=== PATIENT | female | born 1940 | race Caucasian/White ===

== ENCOUNTER → 2017-04-26 | Outpatient (CLI) | payer OTHER ==
[~2017-04-26] MED LIST: ASPI81TA28 PO; GADAVIST IV PRN; LISI-725 PO; NITR-5 PO; SUMA50TA15 PO; VERA1TAB PO
--- NOTE | 2017-04-26 13:53 | DIAGNOSTIC IMAGING REPORT ---
MRI OF THE BRAIN WITHOUT AND WITH IV CONTRAST CLINICAL HISTORY: Ovarian carcinoma. Severe headaches. COMPARISON STUDY: No previous studies for comparison. TECHNIQUE: MRI of the brain was performed from the vertex to the skull base utilizing various T1 and T2 weighted sequences. Following the IV administration of 5 mL of Gadavist contrast, additional enhanced images were obtained. FINDINGS: Sagittal T1, axial diffusion, proton density and T2 weighted axial, coronal FLAIR, and pre and post axial T1-weighted images were acquired. These were supplemented with post gadolinium coronal T1 weighted images. No intra or extra-axial mass lesions are visualized. Axial diffusion-weighted images reveal no evidence of acute or subacute infarction. There is no evidence of ventricular dilatation. Proton density T2-weighted and FLAIR images reveal scattered foci of increased T2 signal within the white matter, likely on a small vessel basis. There are no abnormal flow voids. There is no evidence of pathologic enhancement. IMPRESSION: 1. No acute intracranial findings. 2. No evidence of acute or subacute infarction 3. No evidence of intracranial metastasis Electronically signed by: Jai Darby M.D. 04/26/2017 1:52 PM Dictated Date/Time: 04/26/2017 1:50 PM
== END | disposition home or self-care (01) ==
LOC: C.MRI 12:23
PROVIDERS: ATTEND Physician Assistant
DX: G44.019 Episodic cluster headache, not intractable (principal); C56.9 Malignant neoplasm of unspecified ovary

== ENCOUNTER 2017-09-05 10:35 | Inpatient (IN) | payer OTHER ==
[~2017-09-05] VITALS: Ht 167.6 cm; Wt 45.0 kg
[~2017-09-05 10:35] MED LIST changes: -GADAVIST IV PRN
[2017-09-05] MEDS ORDERED: SODIUM CHLORIDE 0.9% 1000ML 1,000 ML IV STA (10:55)
--- NOTE | 2017-09-05 10:57 | EMERGENCY ROOM VISIT NOTE ---
History Report prepared by Maurisioibpacheco: Vannessa Quintero Under the Supervision of: Dr. Andry Bates M.D. First contact with patient: 10:46 Chief Complaint: ABDOMINAL PAIN Stated Complaint: ACUTE STOMACH ACHE, VOMITING Nursing Triage Summary: pt to the ED with abd pain and n/v since sat and now her vomitt is black History of Present Illness The patient is a 76 year old female who presents to the Emergency Room with complaints of worsening abdominal pain for the past 2 days. She rates her pain as a 9/10 in severity. She has also been nauseous and vomiting for the past 2 days and states her vomit now looks black in color. She has not vomited since last night. She denies any diarrhea or change in her bowels. She has experienced no hematuria or dysuria and has experienced no pain or swelling in her legs. She denies ever experiencing similar symptoms in the past. The patient notes she has a history of ovarian cancer, diagnosed in December 2016, and has undergone chemotherapy and radiation as well as a total hysterectomy. She has also undergone an appendectomy and cholecystectomy. She has lost weight over the past few months due to her cancer history. 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 Please see Additional Medical History Sheet. Past Medical & Surgical Medical Problems: (1) Hypertension (2) Migraine headache (3) Ovarian cancer Surgical Problems: (1) History of appendectomy (2) History of cholecystectomy (3) History of total hysterectomy Family History Cholecystitis Heart disease Hypertension Lung disease Social History Smoking Status: Never Smoker Alcohol Use: none Drug Use: none Marital Status: Housing Status: lives with family Occupation Status: retired Current/Historical Medications Scheduled Aspirin (Aspirin Ec), 81 MG PO DAILY Gabapentin (Neurontin), 600 MG PO HS Verapamil (Calan), 80 MG PO TID Scheduled PRN Docusate Sodium (Colace), 100 MG PO for Constipation Allergies Coded Allergies: Carbamazepine (Verified Allergy, Mild, ITCHING, 09/05/17) Valproic Acid (Verified Allergy, Mild, ITCH, 09/05/17) Physical Exam Vital Signs Date Time Temp Pulse Resp B/P (MAP) Pulse Ox O2 Delivery O2 Flow Rate FiO2 09/05/17 14:36 68 18 156/75 93 Room Air 09/05/17 13:14 73 20 136/75 93 09/05/17 10:38 36.4 68 18 153/86 95 Room Air Physical Exam GENERAL: Patient awake, alert, oriented x 3. Patient follows commands. Patient does not appear toxic. Patient is adequately hydrated. Patient appears somewhat emaciated and to be in moderate distress. SKIN: No erythema, pallor, cyanosis or rash HEENT: Normal head, pupils equal, reactive to light and accommodation. Oral cavity and posterior pharynx appear normal. Neck: Without adenopathy, no neck vein distention. LUNGS: Clear to auscultation. No wheezes, no rales, no rhonchi. HEART: No murmurs. No gallops. No rubs ABDOMEN: Patient has a well healed RUQ scar and midline suprapubic scar. There is generalized tenderness of the abdomen bilaterally, below the umbilicus. No masses, no rebound, no hepatomegaly or splenomegaly. EXTREMITIES: No signs of trauma. No pedal or pretibial edema. No calf or thigh tenderness. NEUROLOGIC: Cranial nerves II-XII within normal limits. No gross motor sensory function deficits. Medical Decision & Procedures ER Provider Diagnostic Interpretation: Radiology results as stated below per my review and radiologist interpretation: ABD/PELVIS IV AND ORAL CONT CLINICAL HISTORY: 76 years-old Female presenting with abdominal pain vomiting recent ovarian CA and surg. TECHNIQUE: Multidetector CT of the abdomen and pelvis was performed after the administration of oral and intravenous contrast. IV contrast: 93 mL of Optiray 320. A dose lowering technique was used consistent with the principles of ALARA (as low as reasonably achievable). COMPARISON: 09/05/2016. CT DOSE (mGy.cm): The estimated cumulative dose is 266.36 mGy.cm. FINDINGS: Chro topogram: Gaseous distention of stomach and small bowel. Lung bases: Minimal basilar opacities, likely atelectasis. Multichamber enlargement of the heart. Coronary artery calcification. No pericardial or pleural effusion. Liver: Normal morphology. Several subcentimeter well-defined hypodensities in the right hepatic lobe unchanged from prior, likely hepatic cysts or hamartomas. No new focal lesion. Patent hepatic vasculature. Biliary: Mild to moderate biliary ductal prominence likely a reservoir effect in the post cholecystectomy state. Gallbladder surgically absent. Pancreas: Prominence of the pancreatic duct with mild diffuse pancreatic parenchymal atrophy. This is unchanged from prior exam. No gross evidence of a obstructing mass at the pancreatic head. Spleen: Parenchymal calcification suggest prior granulomatous infection. Adrenal glands: Normal. Kidneys and ureters: Numerous subcentimeter hypodensities too small to characterize but likely cysts. No hydronephrosis. No nephrolithiasis. Distal ureters poorly assessed. Bladder: Normal. Pelvic organs: Uterus surgically absent. No adnexal masses. Bowel: Moderate stool burden in the rectum. Mild diffuse colonic wall thickening. Appendix not clearly visualized. Terminal ileum is decompressed. Significantly dilated small bowel loops measuring over 5 cm in maximal diameter. The stomach and jejunum are also dilated. An internal hernia is suspected in the right mid abdomen, the source of the bowel obstruction and site of the transition point. At the site of the internal hernia, small bowel wall appears hyperenhancing. A closed loop obstruction is not excluded. Peritoneal cavity: Small amount of free fluid in the abdomen and pelvis. Mild peritoneal enhancement is suggested in the cul-de-sac. No gross nodularity of the peritoneum. Lymph nodes: No enlarged lymph nodes in the abdomen or pelvis. Vasculature: Atherosclerosis of the normal caliber abdominal aorta. IVC patent. Abdominal wall: Postsurgical changes of the midline abdominal wall. Cachexia is suggested. Musculoskeletal: Degenerative changes of the spine. IMPRESSION: 1. Findings highly suspicious for internal hernia in the right mid abdomen resulting in the small bowel obstruction. A closed loop obstruction of the herniated loop of bowel is not excluded. No CT evidence of bowel infarction at this time. Urgent surgical consultation is recommended. 2. Postsurgical changes of hysterectomy and bilateral salpingo-oophorectomy. 3. Chronic prominence of the biliary ducts and pancreatic duct. No gross evidence of a pancreatic head mass. 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 The report will be called/faxed according to standard departmental protocol. Electronically signed by: Percy Pinzon M.D. 09/05/2017 2:26 PM Laboratory Results 09/05/17 11:05 Red Blood Count 4.33, Mean Corpuscular Volume 95.6, Mean Corpuscular Hemoglobin 31.6, Mean Corpuscular Hemoglobin Concent 33.1, Mean Platelet Volume 9.2, Neutrophils (%) (Auto) 82.5, Lymphocytes (%) (Auto) 10.7, Monocytes (%) (Auto) 6.7, Eosinophils (%) (Auto) 0.1, Basophils (%) (Auto) 0.0, Neutrophils # (Auto) 5.62, Lymphocytes # (Auto) 0.73, Monocytes # (Auto) 0.46, Eosinophils # (Auto) 0.01, Basophils # (Auto) 0.00 09/05/17 11:05 Test 09/05/17 11:05 09/05/17 12:40 White Blood Count 6.82 K/uL (4.8-10.8) Red Blood Count 4.33 M/uL (4.2-5.4) Hemoglobin 13.7 g/dL (12.0-16.0) Hematocrit 41.4 % (37-47) Mean Corpuscular Volume 95.6 fL (80-100) Mean Corpuscular Hemoglobin 31.6 pg (25-34) Mean Corpuscular Hemoglobin Concent 33.1 g/dl (32-36) Platelet Count 166 K/uL (130-400) Mean Platelet Volume 9.2 fL (7.4-10.4) Neutrophils (%) (Auto) 82.5 % Lymphocytes (%) (Auto) 10.7 % Monocytes (%) (Auto) 6.7 % Eosinophils (%) (Auto) 0.1 % Basophils (%) (Auto) 0.0 % Neutrophils # (Auto) 5.62 K/uL (1.4-6.5) Lymphocytes # (Auto) 0.73 K/uL (1.2-3.4) Monocytes # (Auto) 0.46 K/uL (0.11-0.59) Eosinophils # (Auto) 0.01 K/uL (0-0.5) Basophils # (Auto) 0.00 K/uL (0-0.2) RDW Standard Deviation 49.0 fL (36.4-46.3) RDW Coefficient of Variation 14.0 % (11.5-14.5) Immature Granulocyte % (Auto) 0.0 % Immature Granulocyte # (Auto) 0.00 K/uL (0.00-0.02) Prothrombin Time 10.5 SECONDS (9.0-12.0) Prothromb Time International Ratio 1.0 (0.9-1.1) Activated Partial Thromboplast Time 24.7 SECONDS (21.0-31.0) Partial Thromboplastin Ratio 1.0 Anion Gap 5.0 mmol/L (3-11) Est Creatinine Clear Calc Drug Dose 37.1 ml/min Estimated GFR () 69.7 Estimated GFR (Non- 60.1 BUN/Creatinine Ratio 41.3 (10-20) Calcium Level 9.1 mg/dl (8.5-10.1) Total Bilirubin 0.5 mg/dl (0.2-1) Aspartate Amino Transf (AST/SGOT) 14 U/L (15-37) Alanine Aminotransferase (ALT/SGPT) 16 U/L (12-78) Alkaline Phosphatase 67 U/L (45-117) Total Protein 7.1 gm/dl (6.4-8.2) Albumin 3.5 gm/dl (3.4-5.0) Globulin 3.6 gm/dl (2.5-4.0) Albumin/Globulin Ratio 1.0 (0.9-2) Lipase 87 U/L (73-393) Urine Color YELLOW Urine Appearance CLEAR (CLEAR) Urine pH 6.5 (4.5-7.5) Urine Specific [place] 1.028 (1.000-1.030) Urine Protein 1+ (NEG) Urine Glucose (UA) NEG (NEG) Urine Ketones TRACE (NEG) Urine Occult Blood NEG (NEG) Urine Nitrite NEG (NEG) Urine Bilirubin NEG (NEG) Urine Urobilinogen NEG (NEG) Urine Leukocyte Esterase NEG (NEG) Urine WBC (Auto) 1-5 /hpf (0-5) Urine RBC (Auto) 0-4 /hpf (0-4) Urine Hyaline Casts (Auto) 1-5 /lpf (0-5) Urine Epithelial Cells (Auto) 20-30 /lpf (0-5) Urine Bacteria (Auto) NEG (NEG) Laboratory results as stated above per my review. Medications Administered Medications (Trade) Dose Ordered Sig/Abel Route Start Time Stop Time Status Last Admin Dose Admin Morphine Sulfate (MoRPHine SULFATE INJ) 6 mg PRN PRN IV 09/05/17 11:00 09/19/17 10:59 09/05/17 11:16 6 MG Ondansetron HCl (Zofran Inj) 4 mg PRN PRN IV 09/05/17 11:00 10/05/17 10:59 09/05/17 11:16 4 MG Sodium Chloride 1,000 ml @ 500 mls/hr Q2H STAT IV 09/05/17 10:55 09/05/17 12:54 DC 09/05/17 11:16 500 MLS/HR ED Course 1047: Past medical records reviewed. The patient was evaluated in room B4. A complete history and physical examination was performed. 1055: NSS 1000 ml @ 500 mls/hr IV. 1100: Zofran 4 mg IV, Morphine Sulfate 6 mg IV. 1439: ED charge nurse informed me the patients CT scan is being read with a finding of small bowel obstruction. 1442: I reevaluated the patient. I updated her on her test results so far. I discussed my recommendation she remain in the hospital for further evaluation and management and she and her daughter verbalized complete understanding and agreement. 1445: I discussed the patients case with Dr. Alanis [facility] General Surgery. The patient will be further evaluated and he also recommends evaluation by the hospital medicine team. 1505: I [facility] the [facility] The patient will be further evaluated. Medical Decision The differential diagnoses considered include ovarian cancer with metastasis, bowel obstruction, diverticulitis and UTI. The patient is here with significant lower abdominal pain. She has a prior history of ovarian cancer with a total abdominal hysterectomy. Pain began sometime this morning. She's had nausea and vomiting. Multiple labs and imaging were obtained. The patient has small bowel obstruction is noted on CT. The patient was given IV fluids. Surgery was consulted in addition to the medical hospitalist. I discussed care with the patient and her daughter. Medication Reconcilliation Current Medication List: was personally reviewed by me Blood Pressure Screening Patient's blood pressure: Elevated blood pressure Blood pressure disposition: Referred to PCP Consults Time Called: 1440 Consulting Physician: Dr. Alanis, [facility] General Surgery Returned Call: 1445 I discussed the patients case with Dr. Alanis [facility] General Surgery. The patient will be further evaluated and he also recommends evaluation by the hospital medicine team. Additional Consults: Time Called: 1458 Consulted Physician[facility] Returned Call: 1505 Additional Comments: I discussed the patients case with Dr. Mi, [facility] Hospitalist. The patient will be further evaluated. Impression Primary Impression: Small bowel obstruction Additional Impression: History of ovarian cancer Scribe Attestation The scribe's documentation has been prepared under my direction and personally reviewed by me in its entirety. I confirm that the note above accurately reflects all work, treatment, procedures, and medical decision making performed by me. Departure Information Dispostion Being Evaluated By Hospitalist Referrals Yefri Segura M.D. (PCP) Patient Instructions [facility] Problem Qualifiers
[2017-09-05] MEDS ORDERED: ONDANSETRON INJ 2 MG/ML 2 ML VIAL IV PRN (11:00)
[2017-09-05] MEDS ORDERED: MoRPHine SULFATE 2 MG/ML CARP IV PRN (11:00)
[2017-09-05] MEDS ORDERED: GABA-113 PO (11:16)
[2017-09-05] MEDS ORDERED: NAPR1TAB9 PO (11:16)
[2017-09-05] MEDS ORDERED: POLY335019 PO (11:16)
[2017-09-05 11:23] LABS: EOS % 0.1 %; EOS ABS # 0.01 K/uL (0-0.5); HEMATOCRIT 41.4 % (37-47); HEMOGLOBIN 13.7 g/dL (12.0-16.0); LYMPH % 10.7 %; LYMPH ABS # 0.73 K/uL (1.2-3.4); MEAN CELL VOLUME 95.6 fL (80-100); MEAN CORPUSCULAR HEMOGLOBIN 31.6 pg (25-34); MEAN CORPUSCULAR HGB CONC 33.1 g/dl (32-36); MEAN PLATELET VOLUME 9.2 fL (7.4-10.4); MONO % 6.7 %; MONO ABS # 0.46 K/uL (0.11-0.59); NEUT % 82.5 %; NEUT ABS # 5.62 K/uL (1.4-6.5); PLATELET COUNT 166 K/uL (130-400); WHITE BLOOD COUNT 6.82 K/uL (4.8-10.8)
[2017-09-05 11:41] LABS: ALBUMIN 3.5 gm/dl (3.4-5.0); CALCIUM 9.1 mg/dl (8.5-10.1); CREATININE 0.93 mg/dl (0.60-1.20); POTASSIUM 3.3 mmol/L (3.5-5.1)
[2017-09-05 11:44] LABS: TOTAL PROTEIN 7.1 gm/dl (6.4-8.2)
[2017-09-05] MEDS ORDERED: OPTIRAY 320 IV PRN (13:30)
--- NOTE | 2017-09-05 14:27 | DIAGNOSTIC IMAGING REPORT ---
ABD/PELVIS IV AND ORAL CONT CLINICAL HISTORY: 76 years-old Female presenting with abdominal pain vomiting recent ovarian CA and surg. TECHNIQUE: Multidetector CT of the abdomen and pelvis was performed after the administration of oral and intravenous contrast. IV contrast: 93 mL of Optiray 320. A dose lowering technique was used consistent with the principles of ALARA (as low as reasonably achievable). COMPARISON: 09/05/2016. CT DOSE (mGy.cm): The estimated cumulative dose is 266.36 mGy.cm. 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 Lung bases: Minimal basilar opacities, likely atelectasis. Multichamber enlargement of the heart. Coronary artery calcification. No pericardial or pleural effusion. Liver: Normal morphology. Several subcentimeter well-defined hypodensities in the right hepatic lobe unchanged from prior, likely hepatic cysts or hamartomas. No new focal lesion. Patent hepatic vasculature. Biliary: Mild to moderate biliary ductal prominence likely a reservoir effect in the post cholecystectomy state. Gallbladder surgically absent. Pancreas: Prominence of the pancreatic duct with mild diffuse pancreatic parenchymal atrophy. This is unchanged from prior exam. No gross evidence of a obstructing mass at the pancreatic head. Spleen: Parenchymal calcification suggest prior granulomatous infection. Adrenal glands: Normal. Kidneys and ureters: Numerous subcentimeter hypodensities too small to characterize but likely cysts. No hydronephrosis. No nephrolithiasis. Distal ureters poorly assessed. Bladder: Normal. Pelvic organs: Uterus surgically absent. No adnexal masses. Bowel: Moderate stool burden in the rectum. Mild diffuse colonic wall thickening. Appendix not clearly visualized. Terminal ileum is decompressed. Significantly dilated small bowel loops measuring over 5 cm in maximal diameter. The stomach and jejunum are also dilated. An internal hernia is suspected in the right mid abdomen, the source of the bowel obstruction and site of the transition point. At the site of the internal hernia, small bowel wall appears hyperenhancing. A closed loop obstruction is not excluded. Peritoneal cavity: Small amount of free fluid in the abdomen and pelvis. Mild peritoneal enhancement is suggested in the cul-de-sac. No gross nodularity of the peritoneum. Lymph nodes: No enlarged lymph nodes in the abdomen or pelvis. Vasculature: Atherosclerosis of the normal caliber abdominal aorta. IVC patent. Abdominal wall: Postsurgical changes of the midline abdominal wall. Cachexia is suggested. Musculoskeletal: Degenerative changes of the spine. IMPRESSION: 1. Findings highly suspicious for internal hernia in the right mid abdomen resulting in the small bowel obstruction. A closed loop obstruction of the herniated loop of bowel is not excluded. No CT evidence of bowel infarction at this time. Urgent surgical consultation is recommended. 2. Postsurgical changes of hysterectomy and bilateral salpingo-oophorectomy. 3. Chronic prominence of the biliary ducts and pancreatic duct. No gross evidence of a pancreatic head mass. 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 The report will be called/faxed according to standard departmental protocol. Electronically signed by: Percy Pinzon M.D. 09/05/2017 2:26 PM Dictated Date/Time: 09/05/2017 2:13 PM
--- NOTE | 2017-09-05 15:39 | Surgery Consultation ---
Consultation Date of Consultation: Sep 05, 2017. Attending Physician: Reason for Consultation: Small bowel obstruction History of Present Illness 76-year-old female with history of total abdominal hysterectomy for metastatic ovarian cancer, presented to the emergency department with abdominal pain and bloating starting Tuesday. She had a normal bowel movement yesterday, but has not been passing gas. She was vomiting overnight, but has not vomited since midnight. She had hysterectomy at [facility] in December of this year. She has not had similar symptoms in the past. She is not no bowel resections in the past. She did have an open cholecystectomy many years ago. Her appendix is absent as it was taken during her hysterectomy. Pain controlled with medications at this time, no vomiting or nausea. Denies any fevers. Past Medical/Surgical History Medical Problems: Ovarian cancer, migraines, hypertension Past surgical history: Total abdominal hysterectomy with appendectomy Open cholecystectomy Bilateral carpal tunnel surgery Family History Cholecystitis Heart disease Hypertension Lung disease Social History Smoking Status: Never Smoker Drug Use: none Marital Status: Housing Status: lives with family Occupation Status: retired Allergies Coded Allergies: Carbamazepine (Verified Allergy, Unknown, ITCHING, 09/05/16) Uncoded Allergies: DIVALPROEX SODIUM (Allergy, Unknown, ITVH, 09/05/16) Home Medications Scheduled Aspirin (Aspirin Ec), 81 MG PO DAILY Gabapentin (Neurontin), 600 MG PO UD Lisinopril (Zestril), 20 MG PO DAILY Sumatriptan Succinate (Imitrex), 50 MG PO PRN Verapamil (Calan), 80 MG PO BID Scheduled PRN Naproxen (Aleve), 220 MG PO UD PRN for Pain Polyethylene Glycol 3350 (Miralax), 17 GM PO DAILY PRN for Constipation Current Inpatient Medications Current Inpatient Medications Medications (Trade) Dose Ordered Sig/Abel Route Start Time Stop Time Status Last Admin Dose Admin Morphine Sulfate (MoRPHine SULFATE INJ) 6 mg PRN PRN IV 09/05/17 11:00 09/19/17 10:59 09/05/17 11:16 6 MG Ondansetron HCl (Zofran Inj) 4 mg PRN PRN IV 09/05/17 11:00 10/05/17 10:59 09/05/17 11:16 4 MG Ioversol (Optiray 320) 100 ml UD PRN IV 09/05/17 13:30 09/09/17 13:29 Review of Systems 10 point review of systems negative except as above Physical Exam Date Time Temp Pulse Resp B/P (MAP) Pulse Ox O2 Delivery O2 Flow Rate FiO2 09/05/17 14:36 68 18 156/75 93 Room Air 09/05/17 13:14 73 20 136/75 93 09/05/17 10:38 36.4 68 18 153/86 95 Room Air General Appearance: WD/WN, + mild distress Head: normocephalic, atraumatic Eyes: normal inspection, PERRL, EOMI ENT: normal ENT inspection, hearing grossly normal Neck: supple, no adenopathy, thyroid normal Respiratory/Chest: chest non-tender, lungs clear, normal breath sounds, no respiratory distress, no accessory muscle use Cardiovascular: regular rate, rhythm, no edema, normal peripheral pulses Abdomen/GI: soft, + tenderness, + distended, + pertinent finding (abdomen with Tammie incision and right upper quadrant, low midline incision well healed. No hernias. Abdomen distended, mildly tender to palpation right lower quadrant with no guarding or rebound. Tympanitic to percussion.) Back: normal inspection, no CVA tenderness, normal range of motion Extremities/Musculoskelatal: normal inspection, no calf tenderness, normal capillary refill, non-tender Neurologic/Psych: special tester II-XII nml as tested, alert, normal mood/affect, oriented x 3 Skin: normal color, warm/dry, no rash Lymphatic: no adenopathy Laboratory Results ABD/PELVIS IV AND ORAL CONT CLINICAL HISTORY: 76 years-old Female presenting with abdominal pain vomiting recent ovarian CA and surg. TECHNIQUE: Multidetector CT of the abdomen and pelvis was performed after the administration of oral and intravenous contrast. IV contrast: 93 mL of Optiray 320. A dose lowering technique was used consistent with the principles of ALARA (as low as reasonably achievable). COMPARISON: 09/05/2016. CT DOSE (mGy.cm): The estimated cumulative dose is 266.36 mGy.cm. FINDINGS: Luggage Maker topogram: Gaseous distention of stomach and small bowel. Lung bases: Minimal basilar opacities, likely atelectasis. Multichamber enlargement of the heart. Coronary artery calcification. No pericardial or pleural effusion. Liver: Normal morphology. Several subcentimeter well-defined hypodensities in the right hepatic lobe unchanged from prior, likely hepatic cysts or hamartomas. No new focal lesion. Patent hepatic vasculature. Biliary: Mild to moderate biliary ductal prominence likely a reservoir effect in the post cholecystectomy state. Gallbladder surgically absent. Pancreas: Prominence of the pancreatic duct with mild diffuse pancreatic parenchymal atrophy. This is unchanged from prior exam. No gross evidence of a obstructing mass at the pancreatic head. Spleen: Parenchymal calcification suggest prior granulomatous infection. Adrenal glands: Normal. Kidneys and ureters: Numerous subcentimeter hypodensities too small to characterize but likely cysts. No hydronephrosis. No nephrolithiasis. Distal ureters poorly assessed. Bladder: Normal. Pelvic organs: Uterus surgically absent. No adnexal masses. Bowel: Moderate stool burden in the rectum. Mild diffuse colonic wall thickening. Appendix not clearly visualized. Terminal ileum is decompressed. Significantly dilated small bowel loops measuring over 5 cm in maximal diameter. The stomach and jejunum are also dilated. An internal hernia is suspected in the right mid abdomen, the source of the bowel obstruction and site of the transition point. At the site of the internal hernia, small bowel wall appears hyperenhancing. A closed loop obstruction is not excluded. Peritoneal cavity: Small amount of free fluid in the abdomen and pelvis. Mild peritoneal enhancement is suggested in the cul-de-sac. No gross nodularity of the peritoneum. Lymph nodes: No enlarged lymph nodes in the abdomen or pelvis. Vasculature: Atherosclerosis of the normal caliber abdominal aorta. IVC patent. Abdominal wall: Postsurgical changes of the midline abdominal wall. Cachexia is suggested. Musculoskeletal: Degenerative changes of the spine. IMPRESSION: 1. Findings highly suspicious for internal hernia in the right mid abdomen resulting in the small bowel obstruction. A closed loop obstruction of the herniated loop of bowel is not excluded. No CT evidence of bowel infarction at this time. Urgent surgical consultation is recommended. 2. Postsurgical changes of hysterectomy and bilateral salpingo-oophorectomy. 3. Chronic prominence of the biliary ducts and pancreatic duct. No gross evidence of a pancreatic head mass. 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 The report will be called/faxed according to standard departmental protocol. Last 24 Hours Test 09/05/17 11:05 09/05/17 12:40 White Blood Count 6.82 K/uL Red Blood Count 4.33 M/uL Hemoglobin 13.7 g/dL Hematocrit 41.4 % Mean Corpuscular Volume 95.6 fL Mean Corpuscular Hemoglobin 31.6 pg Mean Corpuscular Hemoglobin Concent 33.1 g/dl Platelet Count 166 K/uL Mean Platelet Volume 9.2 fL Neutrophils (%) (Auto) 82.5 % Lymphocytes (%) (Auto) 10.7 % Monocytes (%) (Auto) 6.7 % Eosinophils (%) (Auto) 0.1 % Basophils (%) (Auto) 0.0 % Neutrophils # (Auto) 5.62 K/uL Lymphocytes # (Auto) 0.73 K/uL Monocytes # (Auto) 0.46 K/uL Eosinophils # (Auto) 0.01 K/uL Basophils # (Auto) 0.00 K/uL RDW Standard Deviation 49.0 fL RDW Coefficient of Variation 14.0 % Immature Granulocyte % (Auto) 0.0 % Immature Granulocyte # (Auto) 0.00 K/uL Sodium Level 132 mmol/L Potassium Level 3.3 mmol/L Chloride Level 94 mmol/L Carbon Dioxide Level 33 mmol/L Anion Gap 5.0 mmol/L Blood Urea Nitrogen 38 mg/dl Creatinine 0.93 mg/dl Est Creatinine Clear Calc Drug Dose 37.1 ml/min Estimated GFR () 69.7 Estimated GFR (Non- 60.1 BUN/Creatinine Ratio 41.3 Random Glucose 115 mg/dl Calcium Level 9.1 mg/dl Total Bilirubin 0.5 mg/dl Aspartate Amino Transf (AST/SGOT) 14 U/L Alanine Aminotransferase (ALT/SGPT) 16 U/L Alkaline Phosphatase 67 U/L Total Protein 7.1 gm/dl Albumin 3.5 gm/dl Globulin 3.6 gm/dl Albumin/Globulin Ratio 1.0 Lipase 87 U/L Urine Color YELLOW Urine Appearance CLEAR Urine pH 6.5 Urine Specific [place] 1.028 Urine Protein 1+ Urine Glucose (UA) NEG Urine Ketones TRACE Urine Occult Blood NEG Urine Nitrite NEG Urine Bilirubin NEG Urine Urobilinogen NEG Urine Leukocyte Esterase NEG Urine WBC (Auto) 1-5 /hpf Urine RBC (Auto) 0-4 /hpf Urine Hyaline Casts (Auto) 1-5 /lpf Urine Epithelial Cells (Auto) 20-30 /lpf Urine Bacteria (Auto) NEG Assessment & Plan 76-year-old female with history of ovarian cancer and prior abdominal surgery, now with small bowel obstruction. She is currently stable and not vomiting, her pain is minimal, but she is distended. CT scan was reviewed. I doubt that this represents an internal hernia as the patient has never had any bowel resections. At this point I do not think this represents a closed loop obstruction either. Medicine has been consult for admission, and we will proceed with nonoperative management. Recommendations: Admit to medicine for small bowel obstruction No indication for emergent surgery at this time Nothing by mouth, IV fluids If patient vomits or distention worsens, recommend NG tube placement for lower intermittent wall suction Recommend abdominal x-ray in the morning Gen. surgery will continue to follow, call with questions or concerns The diagnosis, treatment options, and plan of care were discussed with the patient and her daughter, all questions were answered, the patient expressed understanding and agreed with the plan of care as stated.
[2017-09-05] MEDS ORDERED: DOCU-94 PO (15:59)
[2017-09-05] MEDS ORDERED: POTASSIUM CHLR 20 MEQ / WTR 20 MEQ in PREMIXED WATER 100 ML IV ONE (16:00)
[2017-09-05 16:12] LABS: PTT PATIENT 24.7 SECONDS (21.0-31.0)
[2017-09-05 16:40] VITALS: Ht 167.6 cm; Wt 45.0 kg
[2017-09-05] MEDS: SODIUM CHLORIDE 0.9% 1000ML 1,000 ML IV SCH (17:47)
--- NOTE | 2017-09-05 18:06 | History and Physical ---
History & Physical Date & Time of Service: Sep 05, 2017 at 15:48 Chief Complaint: Acute Stomach Ache, Vomiting Primary Care Physician: Yefri Segura M.D. History of Present Illness Source: patient, family, clinic records, hospital records 76 year old female with PMH of ovaria cancer s/p shemo and total hysterectomy, HTN, migriane present to the ER with abdominal pain. Pt said that abdominal pain started about 2 days ago associated with nausea and vomiting. Pt grade pain 9/10, constant, non radiating, achy and located in the mid hypogastric area. She said that her last episodes of vomiting was last night. She said that she has not been eating anything. Her last BM was yesterday that was normal. she denies any diarrhea, hematuria, chest pain, palpitation SOB or dysuria. Past Medical/Surgical History Ovarian cancer Total Hysterectomy HTN Migraine Appendectomy Cholecystectomy Family History Cholecystitis Heart disease Hypertension Lung disease Social History Smoking Status: Never Smoker Drug Use: none Marital Status: Occupational Status: retired Multi-Drug Resistant Organisms History of MDRO: No Allergies Coded Allergies: Carbamazepine (Verified Allergy, Mild, ITCHING, 09/05/17) Valproic Acid (Verified Allergy, Mild, ITCH, 09/05/17) Home Medications Scheduled Aspirin (Aspirin Ec), 81 MG PO DAILY Gabapentin (Neurontin), 600 MG PO HS Verapamil (Calan), 80 MG PO TID Scheduled PRN Docusate Sodium (Colace), 100 MG PO for Constipation Review of Systems Constitutional: + weight loss, No fever, No chills Eyes: No eye pain ENT: No hearing loss, No nasal symptoms, No sore throat Respiratory: No cough, No shortness of breath, No dyspnea on exertion Cardiovascular: No chest pain, No palpitations Abdomen: + pain, + nausea, + vomiting Musculoskeletal: No joint pain, No calf pain Genitourinary - Female: No dysuria, No urinary frequency Neurologic: No memory loss, No numbness/tingling Psychiatric: No depression symptoms, No anxiety Endocrine: No fatigue, No excessive thirst Hematologic / Lymphatic: No abnormal bleeding/bruising Integumentary: No rash, No itch Physical Exam Vital Signs Date Time Temp Pulse Resp B/P (MAP) Pulse Ox O2 Delivery O2 Flow Rate FiO2 09/05/17 14:36 68 18 156/75 93 Room Air 09/05/17 13:14 73 20 136/75 93 09/05/17 10:38 36.4 68 18 153/86 95 Room Air General Appearance: WD/WN, no apparent distress Head: normocephalic, atraumatic Eyes: PERRL, EOMI ENT: normal ENT inspection, hearing grossly normal Neck: supple, no JVD Respiratory/Chest: lungs clear, normal breath sounds, no respiratory distress, no accessory muscle use Cardiovascular: regular rate, rhythm, no JVD Abdomen/GI: + tenderness Back: no CVA tenderness Extremities/Musculoskelatal: no calf tenderness, no pedal edema Neurologic/Psych: no motor/sensory deficits, alert, oriented x 3 Skin: warm/dry, no rash Diagnostics Laboratory Results Results Past 24 Hours Test 09/05/17 11:05 09/05/17 12:40 Range/Units White Blood Count 6.82 4.8-10.8 K/uL Red Blood Count 4.33 4.2-5.4 M/uL Hemoglobin 13.7 12.0-16.0 g/dL Hematocrit 41.4 37-47 % Mean Corpuscular Volume 95.6 80-100 fL Mean Corpuscular Hemoglobin 31.6 25-34 pg Mean Corpuscular Hemoglobin Concent 33.1 32-36 g/dl Platelet Count 166 130-400 K/uL Mean Platelet Volume 9.2 7.4-10.4 fL Neutrophils (%) (Auto) 82.5 % Lymphocytes (%) (Auto) 10.7 % Monocytes (%) (Auto) 6.7 % Eosinophils (%) (Auto) 0.1 % Basophils (%) (Auto) 0.0 % Neutrophils # (Auto) 5.62 1.4-6.5 K/uL Lymphocytes # (Auto) 0.73 1.2-3.4 K/uL Monocytes # (Auto) 0.46 0.11-0.59 K/uL Eosinophils # (Auto) 0.01 0-0.5 K/uL Basophils # (Auto) 0.00 0-0.2 K/uL RDW Standard Deviation 49.0 36.4-46.3 fL RDW Coefficient of Variation 14.0 11.5-14.5 % Immature Granulocyte % (Auto) 0.0 % Immature Granulocyte # (Auto) 0.00 0.00-0.02 K/uL Sodium Level 132 136-145 mmol/L Potassium Level 3.3 3.5-5.1 mmol/L Chloride Level 94 98-107 mmol/L Carbon Dioxide Level 33 21-32 mmol/L Anion Gap 5.0 3-11 mmol/L Blood Urea Nitrogen 38 7-18 mg/dl Creatinine 0.93 0.60-1.20 mg/dl Est Creatinine Clear Calc Drug Dose 37.1 ml/min Estimated GFR () 69.7 Estimated GFR (Non- 60.1 BUN/Creatinine Ratio 41.3 10-20 Random Glucose 115 70-99 mg/dl Calcium Level 9.1 8.5-10.1 mg/dl Total Bilirubin 0.5 0.2-1 mg/dl Aspartate Amino Transf (AST/SGOT) 14 15-37 U/L Alanine Aminotransferase (ALT/SGPT) 16 12-78 U/L Alkaline Phosphatase 67 45-117 U/L Total Protein 7.1 6.4-8.2 gm/dl Albumin 3.5 3.4-5.0 gm/dl Globulin 3.6 2.5-4.0 gm/dl Albumin/Globulin Ratio 1.0 0.9-2 Lipase 87 73-393 U/L Urine Color YELLOW Urine Appearance CLEAR CLEAR Urine pH 6.5 4.5-7.5 Urine Specific [place] 1.028 1.000-1.030 Urine Protein 1+ NEG Urine Glucose (UA) NEG NEG Urine Ketones TRACE NEG Urine Occult Blood NEG NEG Urine Nitrite NEG NEG Urine Bilirubin NEG NEG Urine Urobilinogen NEG NEG Urine Leukocyte Esterase NEG NEG Urine WBC (Auto) 1-5 0-5 /hpf Urine RBC (Auto) 0-4 0-4 /hpf Urine Hyaline Casts (Auto) 1-5 0-5 /lpf Urine Epithelial Cells (Auto) 20-30 0-5 /lpf Urine Bacteria (Auto) NEG NEG Diagnostic Radiology ABD/PELVIS IV AND ORAL CONT CLINICAL HISTORY: 76 years-old Female presenting with abdominal pain vomiting recent ovarian CA and surg. TECHNIQUE: Multidetector CT of the abdomen and pelvis was performed after the administration of oral and intravenous contrast. IV contrast: 93 mL of Optiray 320. A dose lowering technique was used consistent with the principles of ALARA (as low as reasonably achievable). COMPARISON: 09/05/2016. CT DOSE (mGy.cm): The estimated cumulative dose is 266.36 mGy.cm. FINDINGS: Communications Engineer topogram: Gaseous distention of stomach and small bowel. Lung bases: Minimal basilar opacities, likely atelectasis. Multichamber enlargement of the heart. Coronary artery calcification. No pericardial or pleural effusion. Liver: Normal morphology. Several subcentimeter well-defined hypodensities in the right hepatic lobe unchanged from prior, likely hepatic cysts or hamartomas. No new focal lesion. Patent hepatic vasculature. Biliary: Mild to moderate biliary ductal prominence likely a reservoir effect in the post cholecystectomy state. Gallbladder surgically absent. Pancreas: Prominence of the pancreatic duct with mild diffuse pancreatic parenchymal atrophy. This is unchanged from prior exam. No gross evidence of a obstructing mass at the pancreatic head. Spleen: Parenchymal calcification suggest prior granulomatous infection. Adrenal glands: Normal. Kidneys and ureters: Numerous subcentimeter hypodensities too small to characterize but likely cysts. No hydronephrosis. No nephrolithiasis. Distal ureters poorly assessed. Bladder: Normal. Pelvic organs: Uterus surgically absent. No adnexal masses. Bowel: Moderate stool burden in the rectum. Mild diffuse colonic wall thickening. Appendix not clearly visualized. Terminal ileum is decompressed. Significantly dilated small bowel loops measuring over 5 cm in maximal diameter. The stomach and jejunum are also dilated. An internal hernia is suspected in the right mid abdomen, the source of the bowel obstruction and site of the transition point. At the site of the internal hernia, small bowel wall appears hyperenhancing. A closed loop obstruction is not excluded. Peritoneal cavity: Small amount of free fluid in the abdomen and pelvis. Mild peritoneal enhancement is suggested in the cul-de-sac. No gross nodularity of the peritoneum. Lymph nodes: No enlarged lymph nodes in the abdomen or pelvis. Vasculature: Atherosclerosis of the normal caliber abdominal aorta. IVC patent. Abdominal wall: Postsurgical changes of the midline abdominal wall. Cachexia is suggested. Musculoskeletal: Degenerative changes of the spine. IMPRESSION: 1. Findings highly suspicious for internal hernia in the right mid abdomen resulting in the small bowel obstruction. A closed loop obstruction of the herniated loop of bowel is not excluded. No CT evidence of bowel infarction at this time. Urgent surgical consultation is recommended. 2. Postsurgical changes of hysterectomy and bilateral salpingo-oophorectomy. 3. Chronic prominence of the biliary ducts and pancreatic duct. No gross evidence of a pancreatic head mass. 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 The report will be called/faxed according to standard departmental protocol. Electronically signed by: Percy Pinzon M.D. 09/05/2017 2:26 PM Dictated Date/Time: 09/05/2017 2:13 PM Impression Assessment and Plan SMALL BOWEL OBSTRUCTION Present with abdominal pain and nausea Hx of Ovarian cancer and total hysterectomy CT Abd/Pelvis showed highly suspicious for internal hernia in the right mid abdomen resulting in the small bowel obstruction. Surgery consulted Will continue conservative management Keep NPO Continue IVF, and zofran Morphine for pain control Hold NGT for now since pt is not actively vomit Check abdomen xray in am Monitor electrolytes Migraine On Verapamil 80mg TID stable HTN Monitor BP Will add hydralazine if BP elevates Constipation On colace 100mg DVT px on Heparin subq CODE STATUS FULL CODE Level of Care Med/Surg Resuscitation Status FULL RESUSCITATION VTE Prophylaxis VTE Risk Assessment Done? Y/N: Yes Risk Level: Moderate Given or contraindicated: Unfractionated heparin SQ
[2017-09-05] MEDS: POTASSIUM CHLR 10MEQ / WTR IV SCH ×2 (18:11→19:19)
[2017-09-05] MEDS: HEPARIN SOD 5000 UNIT/0.5 ML CARP SQ SCH (18:21)
[2017-09-05] MEDS: MoRPHine SULFATE 2 MG/ML CARP IV PRN ×2 (18:25→23:50)
[2017-09-05 23:05] VITALS: BP 151/47; PULSE 72; TEMP 37.2; O2SAT 92
[2017-09-06] MEDS: SODIUM CHLORIDE 0.9% 1000ML 1,000 ML IV SCH ×2 (06:20→16:23)
[2017-09-06] MEDS: HEPARIN SOD 5000 UNIT/0.5 ML CARP SQ SCH ×2 (06:23→18:34)
[2017-09-06] MEDS: MoRPHine SULFATE 2 MG/ML CARP IV PRN ×4 (06:24→23:05)
[2017-09-06] MEDS: ONDANSETRON INJ 2 MG/ML 2 ML VIAL IV PRN ×3 (06:28→23:05)
[2017-09-06 06:29] LABS: HEMATOCRIT 40.9 % (37-47); HEMOGLOBIN 13.3 g/dL (12.0-16.0); MEAN CORPUSCULAR HEMOGLOBIN 31.2 pg (25-34); MEAN CORPUSCULAR HGB CONC 32.5 g/dl (32-36); MEAN PLATELET VOLUME 9.5 fL (7.4-10.4); PLATELET COUNT 162 K/uL (130-400); RED CELL DISTRIBUTION WIDTH SD 49.3 fL (36.4-46.3); WHITE BLOOD COUNT 6.98 K/uL (4.8-10.8)
[2017-09-06] MEDS ORDERED: INFLUENZA VIRUS QUAD VACCINE 0.5 ML SYR IM. ONE (06:45)
[2017-09-06] MEDS ORDERED: INFLUENZA ADMINISTRATION CHARGE ONE (06:45)
[2017-09-06 06:57] LABS: CALCIUM 8.8 mg/dl (8.5-10.1); CREATININE 0.83 mg/dl (0.60-1.20); POTASSIUM 3.7 mmol/L (3.5-5.1)
[2017-09-06 07:04] VITALS: BP 149/79; PULSE 69; TEMP 37; O2SAT 92
--- NOTE | 2017-09-06 08:46 | DIAGNOSTIC IMAGING REPORT ---
CHEST AND ABDOMEN 2 VIEWS HISTORY: Small bowel obstruction. COMPARISON: Chest 09/05/2016. Abdomen and pelvis CT 09/05/2017. FINDINGS: No pneumothorax. Mild emphysema. The heart is borderline enlarged. This remains unchanged. No new focal lung consolidations to suggest pneumonia. No evidence for pulmonary edema. No pneumoperitoneum. No pneumatosis. Residual contrast seen within the bladder. Multiple gas and fluid-filled dilated loops of small bowel seen within the abdomen. These measure up to 4.7 cm in diameter consistent with the small bowel obstruction. This is similar to the prior study. Small hiatus hernia. IMPRESSION: 1. No acute process within the chest. 2. No significant change in the distended loops of small bowel consistent with a small bowel obstruction. Electronically signed by: Shola Plaza M.D. 09/06/2017 8:45 AM Dictated Date/Time: 09/06/2017 8:42 AM
--- NOTE | 2017-09-06 09:38 | Surgery Progress Note ---
Surgery Progress Note Date of Service Sep 06, 2017. Subjective + pain controlled, + nausea (patient reports that she was nauseous when she first woke up this AM- states that it has since resolved. ), No bowel movement, No flatus Objective Vital Signs: Date Time Temp Pulse Resp B/P (MAP) Pulse Ox O2 Delivery O2 Flow Rate FiO2 09/06/17 07:40 Room Air 09/06/17 07:04 37.0 69 16 149/79 (102) 92 Room Air 09/05/17 23:45 Room Air 09/05/17 23:05 37.2 72 18 151/47 (81) 92 Room Air 09/05/17 16:40 Room Air 09/05/17 16:09 68 18 156/75 93 09/05/17 14:36 68 18 156/75 93 Room Air 09/05/17 13:14 73 20 136/75 93 09/05/17 10:38 36.4 68 18 153/86 95 Room Air General Appearance: WD/WN, no apparent distress Abdomen: + distended, + tenderness (tender to right of umbilicus. ) Laboratory Results: Results Past 24 Hours Test 09/05/17 11:05 09/05/17 12:40 09/06/17 05:56 Range/Units White Blood Count 6.82 6.98 4.8-10.8 K/uL Red Blood Count 4.33 4.26 4.2-5.4 M/uL Hemoglobin 13.7 13.3 12.0-16.0 g/dL Hematocrit 41.4 40.9 37-47 % Mean Corpuscular Volume 95.6 96.0 80-100 fL Mean Corpuscular Hemoglobin 31.6 31.2 25-34 pg Mean Corpuscular Hemoglobin Concent 33.1 32.5 32-36 g/dl Platelet Count 166 162 130-400 K/uL Mean Platelet Volume 9.2 9.5 7.4-10.4 fL Neutrophils (%) (Auto) 82.5 % Lymphocytes (%) (Auto) 10.7 % Monocytes (%) (Auto) 6.7 % Eosinophils (%) (Auto) 0.1 % Basophils (%) (Auto) 0.0 % Neutrophils # (Auto) 5.62 1.4-6.5 K/uL Lymphocytes # (Auto) 0.73 1.2-3.4 K/uL Monocytes # (Auto) 0.46 0.11-0.59 K/uL Eosinophils # (Auto) 0.01 0-0.5 K/uL Basophils # (Auto) 0.00 0-0.2 K/uL RDW Standard Deviation 49.0 49.3 36.4-46.3 fL RDW Coefficient of Variation 14.0 14.0 11.5-14.5 % Immature Granulocyte % (Auto) 0.0 % Immature Granulocyte # (Auto) 0.00 0.00-0.02 K/uL Prothrombin Time 10.5 9.0-12.0 SECONDS Prothromb Time International Ratio 1.0 0.9-1.1 Activated Partial Thromboplast Time 24.7 21.0-31.0 SECONDS Partial Thromboplastin Ratio 1.0 Sodium Level 132 131 136-145 mmol/L Potassium Level 3.3 3.7 3.5-5.1 mmol/L Chloride Level 94 97 98-107 mmol/L Carbon Dioxide Level 33 29 21-32 mmol/L Anion Gap 5.0 5.0 3-11 mmol/L Blood Urea Nitrogen 38 35 7-18 mg/dl Creatinine 0.93 0.83 0.60-1.20 mg/dl Est Creatinine Clear Calc Drug Dose 37.1 41.6 ml/min Estimated GFR () 69.7 79.9 Estimated GFR (Non- 60.1 69.0 BUN/Creatinine Ratio 41.3 42.5 10-20 Random Glucose 115 85 70-99 mg/dl Calcium Level 9.1 8.8 8.5-10.1 mg/dl Total Bilirubin 0.5 0.2-1 mg/dl Aspartate Amino Transf (AST/SGOT) 14 15-37 U/L Alanine Aminotransferase (ALT/SGPT) 16 12-78 U/L Alkaline Phosphatase 67 45-117 U/L Total Protein 7.1 6.4-8.2 gm/dl Albumin 3.5 3.4-5.0 gm/dl Globulin 3.6 2.5-4.0 gm/dl Albumin/Globulin Ratio 1.0 0.9-2 Lipase 87 73-393 U/L Urine Color YELLOW Urine Appearance CLEAR CLEAR Urine pH 6.5 4.5-7.5 Urine Specific Inlet 1.028 1.000-1.030 Urine Protein 1+ NEG Urine Glucose (UA) NEG NEG Urine Ketones TRACE NEG Urine Occult Blood NEG NEG Urine Nitrite NEG NEG Urine Bilirubin NEG NEG Urine Urobilinogen NEG NEG Urine Leukocyte Esterase NEG NEG Urine WBC (Auto) 1-5 0-5 /hpf Urine RBC (Auto) 0-4 0-4 /hpf Urine Hyaline Casts (Auto) 1-5 0-5 /lpf Urine Epithelial Cells (Auto) 20-30 0-5 /lpf Urine Bacteria (Auto) NEG NEG Magnesium Level 2.0 1.8-2.4 mg/dl CHEST AND ABDOMEN 2 VIEWS HISTORY: Small bowel obstruction. COMPARISON: Chest 09/05/2016. Abdomen and pelvis CT 09/05/2017. FINDINGS: No pneumothorax. Mild emphysema. The heart is borderline enlarged. This remains unchanged. No new focal lung consolidations to suggest pneumonia. No evidence for pulmonary edema. No pneumoperitoneum. No pneumatosis. Residual contrast seen within the bladder. Multiple gas and fluid-filled dilated loops of small bowel seen within the abdomen. These measure up to 4.7 cm in diameter consistent with the small bowel obstruction. This is similar to the prior study. Small hiatus hernia. IMPRESSION: 1. No acute process within the chest. 2. No significant change in the distended loops of small bowel consistent with a small bowel obstruction. Assessment & Plan 76-year-old female with history of ovarian cancer and prior abdominal surgery, now with small bowel obstruction Patient seen and examined with Dr. Alanis. Reviewed imaging from this AM- CHEST AND ABDOMEN 2 VIEWS 1. No acute process within the chest. 2. No significant change in the distended loops of small bowel consistent with a small bowel obstruction. Patient to remain NPO except for infrequent sips of water. If patient continues to become nauseous, may need to insert NG tube- will hold off for now. General Surgery will continue to follow.
[2017-09-06 15:13] VITALS: BP 149/78; PULSE 70; TEMP 36.9; O2SAT 94
--- NOTE | 2017-09-06 16:53 | Progress Note ---
Internal Med Progress Note Date of Service: Sep 06, 2017. Provider Documentation: SUBJECTIVE: no feeling well continues to have abdominal pain /localized to rt mid abdomen / next to umbilical area able to pass gas , no bowel movement feels nauseous , no vomiting yet does not want NG tube unless absolutely needed mentions of feeling dizzy /lightheaded with attempt to sit up or stand no syncopal episode OBJECTIVE: Vital Signs-as noted below Exam: General-chronically ill appearing , cachectic , in mild distress due abdominal discomfort Eyes-sclera non icteric PERRLA/EOMI ENT-loss of hair , oral mucosa moist Neck-no thyromegaly , trachea midline Lungs-clear to auscultate , no wheeze or rales Heart-regular S1/s, no JVD , no lower ext edema Abdomen-soft, healed surgical scar on rt lower quadrant , + tenderness on rt mid abdomen next to umbilicus, no rebound , bowel sound not audible Extremities-no rash or deformity Neuro-no focal neurological deficit , AAO x3 Lab data as noted below. ASSESSMENT & PLAN: SMALL BOWEL OBSTRUCTION Presented with abdominal pain and nausea Hx of Ovarian cancer s/p extensive surgery -Diagnostic laparoscopy, exploratory Laparotomy, JOMAR/BSO , bilateral pelvic node dissection , resection of left common iliac lymph node , omentectomy , appendectomy by Dr Sheeahn at [facility] [place] , on 12/29/[address] , omentum , appendix were -negative for malignancy Peritoneal washing -suspicious for malignant cell CT abdomen /Pelvis : Findings highly suspicious for internal hernia in the right mid abdomen resulting in the small bowel obstruction. A closed loop obstruction of the herniated loop of bowel is not excluded. No CT evidence of bowel infarction at this time. Surgery consulted-appreciate input form Dr Alanis given hx of metastatic malignancy with possible peritoneal seeding -high risk for repeat Exp Laparotomy /surgical procedure to correct small bowel obstruction increased risk for adhesive band obstruction post op recommend continue conservative approach and allow bowel rest , for possible spontaneous resolution of bowel obstruction cont NPO , IVF rate increased no episode of active vomiting , has persisted nausea able to pass gas reluctant to have NG tube placed due to discomfort pt is counselled if develops nausea /worsening of abdominal pain /distention - NG decompression of Stomach and Small bowel will be beneficial pt verbalize understanding , willing to try NG on the above circumstances Will continue conservative management Xray of Abdomen today : Multiple gas and fluid-filled dilated loops of small bowel seen within the abdomen. These measure up to 4.7 cm in diameter consistent with the small bowel obstruction. This is similar to the prior study. Small hiatus hernia. pt is continued with bowel rest surgery following closely HX OF CLUSTER HEADACHE /MIGRAINE : follows with Neurology Dr Lemos no complain of Headache hold Verapamil 80mg TID-due to SBO stable OVARIAN CA : Follows with Heme Onc Dr Boone in [facility] [employer] /oncology Dr Sheehan in [facility] Dx in 09/05 -bilateral adnexal mass underwent diagnostic laparoscopy, exploratory Laparotomy, JOMAR/BSO , bilateral pelvic node dissection , resection of left common iliac lymph node , omentectomy , appendectomy by Dr Sheehan at [facility] , on 12/29/16 Pathology: (12/29/2016) -Right salpingo-oophorectomy specimen 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 -Peritoneal washings --> suspicious for malignant cells. - CA 125 level--> 68.6 (11/03/2016) increased level 122 ( 02/15/2017 ) -CEA level--> 3.8, CA 19-9 level--> 4.9 (11/03/2016) completed 6 cycles of adjuvant chemotherapy with Paclitaxel and Carboplatin ( between 01/25/17-04/19/2017 ) CODE STATUS FULL CODE DVT PROPHYLAXIS moderate to high risk given hx of endometrial CA Sub q heparin if surgical procedure is required , Sub q heparin can be d/veronica 8-12 hrs prior DISPOSITION expected to be discharged home when medically stable Medicine follow up with Dr Flor Vital Signs: Date Time Temp Pulse Resp B/P (MAP) Pulse Ox O2 Delivery O2 Flow Rate FiO2 09/07/17 15:28 37.1 57 18 135/74 (94) 93 Room Air 09/07/17 07:40 Room Air 09/07/17 07:15 36.4 66 18 155/67 (96) 93 Room Air 09/06/17 23:10 Room Air 09/06/17 22:53 36.9 66 18 153/77 (102) 94 Room Air Lab Results: Results Past 24 Hours Test 09/07/17 05:59 Range/Units Sodium Level 134 136-145 mmol/L Potassium Level 3.6 3.5-5.1 mmol/L Chloride Level 101 98-107 mmol/L Carbon Dioxide Level 25 21-32 mmol/L Anion Gap 8.0 3-11 mmol/L Blood Urea Nitrogen 35 7-18 mg/dl Creatinine 0.64 0.60-1.20 mg/dl Est Creatinine Clear Calc Drug Dose 54.0 ml/min Estimated GFR () 101.2 Estimated GFR (Non- 87.3 BUN/Creatinine Ratio 54.0 10-20 Random Glucose 73 70-99 mg/dl Calcium Level 8.4 8.5-10.1 mg/dl Magnesium Level 2.0 1.8-2.4 mg/dl
[2017-09-06 22:53] VITALS: BP 153/77; PULSE 66; TEMP 36.9; O2SAT 94
[2017-09-07] MEDS: LORAZEPAM INJ 0.5 MG in SYRINGE 0.25 ML IV PRN ×2 (01:22→19:51)
[2017-09-07] MEDS: SODIUM CHLORIDE 0.9% 1000ML 1,000 ML IV SCH ×3 (03:20→22:18)
[2017-09-07] MEDS: HEPARIN SOD 5000 UNIT/0.5 ML CARP SQ SCH (05:38)
[2017-09-07] MEDS: ONDANSETRON INJ 2 MG/ML 2 ML VIAL IV PRN (05:44)
[2017-09-07 06:49] LABS: CALCIUM 8.4 mg/dl (8.5-10.1); CREATININE 0.64 mg/dl (0.60-1.20); POTASSIUM 3.6 mmol/L (3.5-5.1)
[2017-09-07 07:15] VITALS: BP 155/67; PULSE 66; TEMP 36.4; O2SAT 93
[2017-09-07] MEDS: PROMETHAZINE HCL INJ 12.5 MG in SODIUM CHLORIDE 0.9% 50ML 50 ML IV PRN ×2 (08:08→16:16)
--- NOTE | 2017-09-07 08:29 | DIAGNOSTIC IMAGING REPORT ---
[facility] CLINICAL HISTORY: 76 years-old Female presenting with small bowel obstruction . TECHNIQUE: Single supine view of the abdomen was obtained. COMPARISON: 09/06/[address] from 09/05/2017. FINDINGS: Dilated loop of small bowel in the left mid abdomen with an apparent diameter of 5 cm, though this may be exaggerated by magnification. Lucency in the epigastrium may be within a distended stomach. No commencing evidence of pneumoperitoneum within limitations of supine positioning. Atherosclerosis. Levoscoliotic curvature of the lumbar spine. IMPRESSION: 1. Pathologically dilated small bowel remains concerning for small bowel obstruction. Electronically signed by: Percy Pinzon M.D. 09/07/2017 8:27 AM Dictated Date/Time: 09/07/2017 8:24 AM
--- NOTE | 2017-09-07 11:25 | Surgery Progress Note ---
Surgery Progress Note Date of Service Sep 07, 2017. Subjective No bowel movement, No flatus Nausea this AM- feels that it is due to Zofran. States that nausea has since improved. Objective Vital Signs: Date Time Temp Pulse Resp B/P (MAP) Pulse Ox O2 Delivery O2 Flow Rate FiO2 09/07/17 07:40 Room Air 09/07/17 07:15 36.4 66 18 155/67 (96) 93 Room Air 09/06/17 23:10 Room Air 09/06/17 22:53 36.9 66 18 153/77 (102) 94 Room Air 09/06/17 15:25 Room Air 09/06/17 15:13 36.9 70 16 149/78 (101) 94 Room Air General Appearance: WD/WN, no apparent distress Head: normocephalic, atraumatic Abdomen: + pertinent finding (tender to palpation right of umbilicus, distention improving. ) Laboratory Results: Results Past 24 Hours Test 09/07/17 05:59 Range/Units Sodium Level 134 136-145 mmol/L Potassium Level 3.6 3.5-5.1 mmol/L Chloride Level 101 98-107 mmol/L Carbon Dioxide Level 25 21-32 mmol/L Anion Gap 8.0 3-11 mmol/L Blood Urea Nitrogen 35 7-18 mg/dl Creatinine 0.64 0.60-1.20 mg/dl Est Creatinine Clear Calc Drug Dose 54.0 ml/min Estimated GFR () 101.2 Estimated GFR (Non- 87.3 BUN/Creatinine Ratio 54.0 10-20 Random Glucose 73 70-99 mg/dl Calcium Level 8.4 8.5-10.1 mg/dl Magnesium Level 2.0 1.8-2.4 mg/dl Assessment & Plan 09/07/2017- 76-year-old female with history of ovarian cancer and prior abdominal surgery, now with small bowel obstruction Patient seen and examined with Dr. Alanis. Recent imaging reviewed. Passing flatus yesterday, no BM yet. Patient continues to have intermittent nausea, especially in the AM. Patient believes that it may be Zofran causing the nausea- reports that nausea has improved. Phenergan was added. Will continue to hold off on NG tube, but informed patient that if she does continue to become nauseous we will have to place it. Encourage ambulation. General Surgery will continue to follow. 76-year-old female with history of ovarian cancer and prior abdominal surgery, now with small bowel obstruction Patient seen and examined with Dr. Alanis. Reviewed imaging from this AM- CHEST AND ABDOMEN 2 VIEWS 1. No acute process within the chest. 2. No significant change in the distended loops of small bowel consistent with a small bowel obstruction. Patient to remain NPO except for infrequent sips of water. If patient continues to become nauseous, may need to insert NG tube- will hold off for now. General Surgery will continue to follow.
[2017-09-07] MEDS: MoRPHine SULFATE 2 MG/ML CARP IV PRN ×3 (12:13→23:09)
[2017-09-07 15:28] VITALS: BP 135/74; PULSE 57; TEMP 37.1; O2SAT 93
--- NOTE | 2017-09-07 18:09 | Progress Note ---
Internal Med Progress Note Date of Service: Sep 07, 2017. Provider Documentation: SUBJECTIVE: has persisted nausea , symptom worse with IV Zofran-D/veronica PRN Phenergan ordered Xray of abdomen shows persisted dilated small bowel -SBO discussed with pt and daughter -due to extensive nature of prior abdominal surgery and ovarian ca if pt fails conservative approach , for definitive tx -surgery will need to be transferred to [place] pt is agreeable at present does not have any abdominal discomfort pt is counselled to consider for the placement of NG tube , pt remains high risk for surgery all attempt to resolve the bowel obstruction with bowel rest /non surgical approach will have better out come pt is willing to try for NG tube ordered for NG tube insertion with low intermittent suction Xray of abdomen with acute obstruction series ordered in AM OBJECTIVE: Vital Signs-as noted below Exam: General-chronically ill appearing , cachectic , in mild distress due abdominal discomfort Eyes-sclera non icteric PERRLA/EOMI ENT-loss of hair , oral mucosa moist Neck-no thyromegaly , trachea midline Lungs-clear to auscultate , no wheeze or rales Heart-regular S1/s, no JVD , no lower ext edema Abdomen-soft, healed surgical scar on rt lower quadrant , + tenderness on rt mid abdomen next to umbilicus, no rebound , bowel sound not audible Extremities-no rash or deformity Neuro-no focal neurological deficit , AAO x3 Lab data as noted below. ASSESSMENT & PLAN: SMALL BOWEL OBSTRUCTION Presented with abdominal pain and nausea Hx of Ovarian cancer s/p extensive surgery -Diagnostic laparoscopy, exploratory Laparotomy, JOMAR/BSO , bilateral pelvic node dissection , resection of left common iliac lymph node , omentectomy , appendectomy by Dr Sheehan at [facility] , [place] , on 12/29/[address] , omentum , appendix were -negative for malignancy Peritoneal washing -suspicious for malignant cell CT abdomen /Pelvis : Findings highly suspicious for internal hernia in the right mid abdomen resulting in the small bowel obstruction. A closed loop obstruction of the herniated loop of bowel is not excluded. No CT evidence of bowel infarction at this time. Surgery consulted-appreciate input form Dr Alanis given hx of metastatic malignancy with possible peritoneal seeding -high risk for repeat Exp Laparotomy /surgical procedure to correct small bowel obstruction increased risk for adhesive band obstruction post op recommend continue conservative approach and allow bowel rest , for possible spontaneous resolution of bowel obstruction cont NPO , IVF rate increased pt is agreeable for NG tube , ordered for low intermittent suction repeat acute abdomen series ordered in AM d/w Surgery -bowel obstruction remains unchanged for last 72 hrs does not have any evidence of imminent perforation /bowel ischemia or peritoneal sign if pt requires surgical intervention -recommend should be transferred to [place] -where pt had prior surgery on 12/27 , due to extensive bowels surgery /possible peritoneal mets /complicated obstruction HX OF CLUSTER HEADACHE /MIGRAINE : follows with Neurology Dr Lemos no complain of Headache hold Verapamil 80mg TID-due to SBO stable HYPONATREMIA : due to bowel obstruction , fluid loss /dehydration Na level improved with IV NSS cont to follow PRP OVARIAN CA : Follows with Heme Onc Dr Boone in [facility] [employer] /oncology Dr Sheehan in [facility] Dx in 09/05 -bilateral adnexal mass underwent diagnostic laparoscopy, exploratory Laparotomy, JOMAR/BSO , bilateral pelvic node dissection , resection of left common iliac lymph node , omentectomy , appendectomy by Dr Sheehan at [facility] , on 12/29/16 Pathology: (12/29/2016) -Right salpingo-oophorectomy specimen 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 -Peritoneal washings --> suspicious for malignant cells. - CA 125 level--> 68.6 (11/03/2016) increased level 122 ( 02/15/2017 ) -CEA level--> 3.8, CA 19-9 level--> 4.9 (11/03/2016) completed 6 cycles of adjuvant chemotherapy with Paclitaxel and Carboplatin ( between 01/25/17-04/19/2017 ) overall Poor prognosis CODE STATUS FULL CODE DVT PROPHYLAXIS moderate to high risk given hx of endometrial CA given persisted nature of small bowel obstruction -will hold sub q heparin scd and teds ordered if surgical procedure is required , pt [facility] be transferred to [facility] DISPOSITION to be determined May need tertiary level care for surgical intervention for SBO if bowel obstruction not resolved with bowel rest /NG suction Vital Signs: Date Time Temp Pulse Resp B/P (MAP) Pulse Ox O2 Delivery O2 Flow Rate FiO2 09/07/17 15:35 Room Air 09/07/17 15:28 37.1 57 18 135/74 (94) 93 Room Air 09/07/17 07:40 Room Air 09/07/17 07:15 36.4 66 18 155/67 (96) 93 Room Air 09/06/17 23:10 Room Air 09/06/17 22:53 36.9 66 18 153/77 (102) 94 Room Air Lab Results: Results Past 24 Hours Test 09/07/17 05:59 Range/Units Sodium Level 134 136-145 mmol/L Potassium Level 3.6 3.5-5.1 mmol/L Chloride Level 101 98-107 mmol/L Carbon Dioxide Level 25 21-32 mmol/L Anion Gap 8.0 3-11 mmol/L Blood Urea Nitrogen 35 7-18 mg/dl Creatinine 0.64 0.60-1.20 mg/dl Est Creatinine Clear Calc Drug Dose 54.0 ml/min Estimated GFR () 101.2 Estimated GFR (Non- 87.3 BUN/Creatinine Ratio 54.0 10-20 Random Glucose 73 70-99 mg/dl Calcium Level 8.4 8.5-10.1 mg/dl Magnesium Level 2.0 1.8-2.4 mg/dl
[2017-09-07 23:00] VITALS: BP 150/70; PULSE 60; TEMP 37; O2SAT 93
[2017-09-08] MEDS: MoRPHine SULFATE 2 MG/ML CARP IV PRN ×2 (01:59→15:34)
[2017-09-08] MEDS ORDERED: MoRPHine SULFATE 2 MG/ML CARP IV STA (03:00)
[2017-09-08] MEDS ORDERED: NURSING VERBAL MED ORDER ONE (04:00)
[2017-09-08 07:06] LABS: CALCIUM 7.8 mg/dl (8.5-10.1); CREATININE 0.54 mg/dl (0.60-1.20); POTASSIUM 3.4 mmol/L (3.5-5.1)
[2017-09-08 07:43] VITALS: BP 145/72; PULSE 60; TEMP 37.1; O2SAT 92
[2017-09-08] MEDS: SODIUM CHLORIDE 0.9% 1000ML 1,000 ML IV SCH ×2 (07:46→19:26)
--- NOTE | 2017-09-08 09:18 | DIAGNOSTIC IMAGING REPORT ---
ABDOMEN 2 VIEWS HISTORY: SMALL BOWEL OBSTRUCTION COMPARISON: KUB 09/07/2017. FINDINGS: Small bilateral pleural effusions. Nasogastric tube terminates in the stomach. Contrast within the bowel now resides within the colon. Distended gas-filled loops of small bowel persist and measure up to 5 cm in diameter. Therefore, these findings are consistent with a partial small bowel obstruction. The colon remains decompressed. No pneumoperitoneum. No pneumatosis. IMPRESSION: 1. No significant change in distended loops of gas-filled small bowel seen within the left side of the abdomen. However, the oral contrast is now within the colon. Therefore, by definition this is consistent with a partial small bowel obstruction. 2. Nasogastric tube terminates in the stomach. 3. Small bilateral pleural effusions Electronically signed by: Shola Plaza M.D. 09/08/2017 9:17 AM Dictated Date/Time: 09/08/2017 9:13 AM
--- NOTE | 2017-09-08 09:24 | Surgery Progress Note ---
Surgery Progress Note Date of Service Sep 08, 2017. Subjective 76-year-old female admitted with a small bowel obstruction. She finally allowed us to place an NG tube yesterday and has had a good amount of relief from her abdominal bloating and discomfort. She did pass a small amount of gas yesterday. Her records from [facility] were obtained yesterday and showed that she had a total abdominal hysterectomy and bilateral salpingo-oophorectomy along with lymph node dissections and an omentectomy. There is no evidence of metastasis of her ovarian cancer at the time, however the CA-125 remained elevated and she had concern for malignancy on her peritoneal washings at the time of surgery. She completed chemotherapy at the end of April. Overall her abdomen feels less distended and she is not having much pain. Objective Vital Signs: Date Time Temp Pulse Resp B/P (MAP) Pulse Ox O2 Delivery O2 Flow Rate FiO2 09/08/17 07:43 37.1 60 16 145/72 (96) 92 Room Air 09/07/17 23:05 Room Air 09/07/17 23:00 37.0 60 16 150/70 (96) 93 Room Air 09/07/17 15:35 Room Air 09/07/17 15:28 37.1 57 18 135/74 (94) 93 Room Air Physical Exam: nasogastric drainage (750 mL, bilious) General Appearance: WD/WN, no apparent distress Abdomen: non tender, soft, + distended, + pertinent finding (less distention than yesterday, nontender, still tympanitic, some bowel sounds present) Laboratory Results: Abdominal x-ray performed this morning does not have a final read him however it appears to contrast that entered into her colon, but there is still distended small bowel loops. Results Past 24 Hours Test 09/08/17 05:42 Range/Units Sodium Level 137 136-145 mmol/L Potassium Level 3.4 3.5-5.1 mmol/L Chloride Level 105 98-107 mmol/L Carbon Dioxide Level 23 21-32 mmol/L Anion Gap 9.0 3-11 mmol/L Blood Urea Nitrogen 29 7-18 mg/dl Creatinine 0.54 0.60-1.20 mg/dl Est Creatinine Clear Calc Drug Dose 63.9 ml/min Estimated GFR () 107.0 Estimated GFR (Non- 92.3 BUN/Creatinine Ratio 53.6 10-20 Random Glucose 57 70-99 mg/dl Calcium Level 7.8 8.5-10.1 mg/dl Magnesium Level 1.9 1.8-2.4 mg/dl Assessment & Plan 76-year-old female with history of ovarian cancer requiring radical hysterectomy back in December and chemotherapy for presumed metastatic disease, now with partial small bowel obstruction. She did pass some gas yesterday and has contrast in her colon on today's x-ray. There is still distended loops of small bowel. This is the first day she has had an NG tube, I'm hopeful that she can resolve nonoperatively. I did discuss with her that if she needed surgical management, we would have to decide whether she would be better served at a tertiary center based on her history of metastatic ovarian cancer. Recommendations: Continue NG tube to low intermittent wall suction Recommend patient ambulate regularly Continue nonoperative management Surgery will continue to follow Plan of care discussed with the patient, all questions were answered, the patient expressed understanding and agreed with the plan of care as stated
[2017-09-08] MEDS: POTASSIUM CHLR 10 MEQ / WTR 10 MEQ in PREMIXED WATER 100 ML IV SCH ×2 (10:25→11:32)
[2017-09-08 14:56] VITALS: BP 159/69; PULSE 64; TEMP 36.6; O2SAT 92
--- NOTE | 2017-09-08 19:14 | Progress Note ---
Internal Med Progress Note Date of Service: Sep 08, 2017. Provider Documentation: SUBJECTIVE: NG tube continues to drain dark bilious fluid no nausea , abdominal discomfort , boating has improved complains of irritation on nose due to NG tube able to pass gas no bowel movement yet OBJECTIVE: Vital Signs-as noted below Exam: General-chronically ill appearing , cachectic , Eyes-sclera non icteric PERRLA/EOMI ENT-NG tube present Neck-no thyromegaly , trachea midline Lungs-clear to auscultate , no wheeze or rales Heart-regular S1/s, no JVD , no lower ext edema Abdomen-soft, healed surgical scar on rt lower quadrant , + tenderness on rt mid abdomen next to umbilicus, no rebound , bowel sound not audible Extremities-no rash or deformity Neuro-no focal neurological deficit , AAO x3 Lab data as noted below. ASSESSMENT & PLAN: SMALL BOWEL OBSTRUCTION improved ; Xray of abdomen series shows ; contrast passage to lower GI -large intestine , still dilated small bowel -Partial bowel obstruction appreciate input from surgery Cont NG suction , IV Fluids pt is encouraged to increase activity as tolerated Presented with abdominal pain and nausea Hx of Ovarian cancer s/p extensive surgery -Diagnostic laparoscopy, exploratory Laparotomy, JOMAR/BSO , bilateral pelvic node dissection , resection of left common iliac lymph node , omentectomy , appendectomy by Dr Sheehan at [facility] , on 12/29/[address] , omentum , appendix were -negative for malignancy Peritoneal washing -suspicious for malignant cell CT abdomen /Pelvis : Findings highly suspicious for internal hernia in the right mid abdomen resulting in the small bowel obstruction. A closed loop obstruction of the herniated loop of bowel is not excluded. No CT evidence of bowel infarction at this time. HX OF CLUSTER HEADACHE /MIGRAINE : follows with Neurology Dr Lemos no complain of Headache hold Verapamil 80mg TID-due to SBO stable HYPONATREMIA : due to bowel obstruction , fluid loss /dehydration Na level improved with IV NSS cont to follow PRP OVARIAN CA : Follows with Heme Onc Dr Boone in [facility] [employer] /oncology Dr Sheehan in [facility] Dx in 09/05 -bilateral adnexal mass underwent diagnostic laparoscopy, exploratory Laparotomy, JOMAR/BSO , bilateral pelvic node dissection , resection of left common iliac lymph node , omentectomy , appendectomy by Dr Sheehan at [facility] , on 12/29/16 Pathology: (12/29/2016) -Right salpingo-oophorectomy specimen 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 -Peritoneal washings --> suspicious for malignant cells. - CA 125 level--> 68.6 (11/03/2016) increased level 122 ( 02/15/2017 ) -CEA level--> 3.8, CA 19-9 level--> 4.9 (11/03/2016) completed 6 cycles of adjuvant chemotherapy with Paclitaxel and Carboplatin ( between 01/25/17-04/19/2017 ) overall Poor prognosis CODE STATUS FULL CODE DVT PROPHYLAXIS moderate to high risk given hx of endometrial CA given persisted nature of small bowel obstruction -will hold sub q heparin scd and teds ordered if surgical procedure is required , pt should be transferred to [facility] DISPOSITION clinically improving continue bowel rest /NG suction -SBO improved to partial bowel obstruction Vital Signs: Date Time Temp Pulse Resp B/P (MAP) Pulse Ox O2 Delivery O2 Flow Rate FiO2 09/08/17 15:30 Room Air 09/08/17 14:56 36.6 64 18 159/69 (99) 92 Room Air 09/08/17 07:43 37.1 60 16 145/72 (96) 92 Room Air 09/08/17 07:30 Room Air 09/07/17 23:05 Room Air 09/07/17 23:00 37.0 60 16 150/70 (96) 93 Room Air Lab Results: Results Past 24 Hours Test 09/08/17 05:42 Range/Units Sodium Level 137 136-145 mmol/L Potassium Level 3.4 3.5-5.1 mmol/L Chloride Level 105 98-107 mmol/L Carbon Dioxide Level 23 21-32 mmol/L Anion Gap 9.0 3-11 mmol/L Blood Urea Nitrogen 29 7-18 mg/dl Creatinine 0.54 0.60-1.20 mg/dl Est Creatinine Clear Calc Drug Dose 63.9 ml/min Estimated GFR () 107.0 Estimated GFR (Non- 92.3 BUN/Creatinine Ratio 53.6 10-20 Random Glucose 57 70-99 mg/dl Calcium Level 7.8 8.5-10.1 mg/dl Magnesium Level 1.9 1.8-2.4 mg/dl
[2017-09-08] MEDS ORDERED: CHLORASEPTIC 1.4% SOLN 180 ML BTL MT PRN (20:30)
[2017-09-08 22:53] VITALS: BP 173/83; PULSE 61; TEMP 36.8; O2SAT 92
[2017-09-08 23:23] VITALS: BP 170/78; PULSE 59
[2017-09-09] MEDS: LORAZEPAM INJ 0.5 MG in SYRINGE 0.25 ML IV PRN ×2 (02:26→23:29)
[2017-09-09] MEDS: SODIUM CHLORIDE 0.9% 1000ML 1,000 ML IV SCH (05:10)
[2017-09-09 06:20] VITALS: BP 158/80
[2017-09-09 06:47] LABS: CALCIUM 7.9 mg/dl (8.5-10.1); CREATININE 0.45 mg/dl (0.60-1.20)
[2017-09-09 07:14] VITALS: BP 167/77; PULSE 64; TEMP 37; O2SAT 93
[2017-09-09] MEDS: POTASSIUM CHLR 10 MEQ / WTR 10 MEQ in PREMIXED WATER 100 ML IV SCH ×3 (08:28→12:52)
[2017-09-09] MEDS ORDERED: MAGNESIUM SULFATE 1GM / D5W 1 GM in PREMIXED IN D5W 100 ML IV ONE (08:30)
[2017-09-09] MEDS: HEPARIN SOD 5000 UNIT/0.5 ML CARP SQ SCH ×2 (08:44→21:38)
--- NOTE | 2017-09-09 11:03 | DIAGNOSTIC IMAGING REPORT ---
PA CHEST RADIOGRAPH AND UPRIGHT AND SUPINE AP RADIOGRAPHS OF THE ABDOMEN CLINICAL HISTORY: Small bowel obstruction. COMPARISON STUDY: CT of the abdomen and pelvis September 05, 2017 and abdominal series September 08, 2017. FINDINGS: Tip of nasogastric tube is within the body of the stomach. There is no pneumothorax. There are small bilateral pleural effusions. There is no evidence of pulmonary edema. No free air is present. There is oral contrast within the colon and rectum from previous CT. Moderate small bowel dilatation has slightly increased. There is gas within the colon. The appearance is similar to prior exam. IMPRESSION: 1. Slight increase in moderate small bowel dilatation which suggests a worsening small bowel obstruction. 2. No free air. 3. Tip of nasogastric tube within body stomach. 4. Small bilateral pleural effusions. Electronically signed by: Som Terrell M.D. 09/09/2017 11:02 AM Dictated Date/Time: 09/09/2017 10:52 AM
[2017-09-09] MEDS: NSS + 20MEQ KCL 1000ML 1,000 ML IV SCH ×2 (11:05→21:33)
--- NOTE | 2017-09-09 12:09 | Surgery Progress Note ---
Surgery Progress Note Date of Service Sep 09, 2017. Subjective increasing flatus today, no BM, no pain Objective Vital Signs: Date Time Temp Pulse Resp B/P (MAP) Pulse Ox O2 Delivery O2 Flow Rate FiO2 09/09/17 07:15 Room Air 09/09/17 07:14 37.0 64 16 167/77 (107) 93 Room Air 09/09/17 06:20 158/80 (106) 09/09/17 00:00 Room Air 09/08/17 23:23 59 170/78 (108) 09/08/17 22:53 36.8 61 16 173/83 (113) 92 Room Air 09/08/17 15:30 Room Air 09/08/17 14:56 36.6 64 18 159/69 (99) 92 Room Air Physical Exam: nasogastric drainage (350 cc overnight) Abdomen: non tender, soft, + distended (mildly) Laboratory Results: Results Past 24 Hours Test 09/09/17 05:55 Range/Units Sodium Level 135 136-145 mmol/L Potassium Level 3.0 3.5-5.1 mmol/L Chloride Level 99 98-107 mmol/L Carbon Dioxide Level 24 21-32 mmol/L Anion Gap 12.0 3-11 mmol/L Blood Urea Nitrogen 16 7-18 mg/dl Creatinine 0.45 0.60-1.20 mg/dl Est Creatinine Clear Calc Drug Dose 76.7 ml/min Estimated GFR () 113.6 Estimated GFR (Non- 98.0 BUN/Creatinine Ratio 35.8 10-20 Random Glucose 55 70-99 mg/dl Calcium Level 7.9 8.5-10.1 mg/dl Magnesium Level 1.7 1.8-2.4 mg/dl Diagnostic Interpretation: PA CHEST RADIOGRAPH AND UPRIGHT AND SUPINE AP RADIOGRAPHS OF THE ABDOMEN CLINICAL HISTORY: Small bowel obstruction. COMPARISON STUDY: CT of the abdomen and pelvis September 05, 2017 and abdominal series September 08, 2017. FINDINGS: Tip of nasogastric tube is within the body of the stomach. There is no pneumothorax. There are small bilateral pleural effusions. There is no evidence of pulmonary edema. No free air is present. There is oral contrast within the colon and rectum from previous CT. Moderate small bowel dilatation has slightly increased. There is gas within the colon. The appearance is similar to prior exam. IMPRESSION: 1. Slight increase in moderate small bowel dilatation which suggests a worsening small bowel obstruction. 2. No free air. 3. Tip of nasogastric tube within body stomach. 4. Small bilateral pleural effusions. Assessment & Plan PSBO, ovarian CA making slow progress, NG drainage slowly decreasing, now having increasing flatus XR has similar loop of distended small bowel in LUQ but contrast is in colon will try clamping NG this afternoon, if successful can remove and begin clears slowly seen with Dr. Rosas
[2017-09-09 14:11] VITALS: BP 169/75; PULSE 71; O2SAT 94
[2017-09-09 15:13] VITALS: BP 176/83; PULSE 67; TEMP 36.9; O2SAT 93
--- NOTE | 2017-09-09 22:26 | Progress Note ---
Internal Med Progress Note Date of Service: Sep 09, 2017. Provider Documentation: SUBJECTIVE: NG tube d/veronica . feels much better had multiple bowel movements started on clears , tolerating well no nausea or abdominal pain OBJECTIVE: Vital Signs-as noted below Exam: General-chronically ill appearing , cachectic , Eyes-sclera non icteric PERRLA/EOMI ENT-moist oral mucosa Neck-no thyromegaly , trachea midline Lungs-clear to auscultate , no wheeze or rales Heart-regular S1/s, no JVD , no lower ext edema Abdomen-soft, healed surgical scar on rt lower quadrant , non tender bowel sound + ve Extremities-no rash or deformity Neuro-no focal neurological deficit , AAO x3 Lab data as noted below. ASSESSMENT & PLAN: SMALL BOWEL OBSTRUCTION Xray of abdomen series today : 1. Slight increase in moderate small bowel dilatation which suggests a worsening small bowel obstruction. 2. No free air. 3. Tip of nasogastric tube within body stomach. 4. Small bilateral pleural effusions. surgery following discussed with surgery regarding Xray finding per surgery - Xray shows stable dilatation , contrast managed to transit to lower colon recommends clamping the NG tube this after noon pt had not nausea vomiting , able to have bowel movement NG tube D/veronica started on clears -tolerating well will advance diet to full liquid in AM Hx of Ovarian cancer s/p extensive surgery -Diagnostic laparoscopy, exploratory Laparotomy, JOMAR/BSO , bilateral pelvic node dissection , resection of left common iliac lymph node , omentectomy , appendectomy by Dr Sheehan at [facility] , on 12/29/[address] , omentum , appendix were -negative for malignancy Peritoneal washing -suspicious for malignant cell CT abdomen /Pelvis : Findings highly suspicious for internal hernia in the right mid abdomen resulting in the small bowel obstruction. A closed loop obstruction of the herniated loop of bowel is not excluded. No CT evidence of bowel infarction at this time. LOW K/LOW MG : due to NG suction replaced repeat lytes in AM HX OF CLUSTER HEADACHE /MIGRAINE : follows with Neurology Dr Lemos no complain of Headache hold Verapamil 80mg TID-due to SBO stable HYPONATREMIA : due to bowel obstruction , fluid loss /dehydration cont IV NSS cont to follow PRP OVARIAN CA : Follows with Heme Onc Dr Boone in [facility] [employer] /oncology Dr Sheehan in [facility] Dx in 09/05 -bilateral adnexal mass underwent diagnostic laparoscopy, exploratory Laparotomy, JOMAR/BSO , bilateral pelvic node dissection , resection of left common iliac lymph node , omentectomy , appendectomy by Dr Sheehan at [facility] [place] , on 12/29/16 Pathology: (12/29/2016) -Right salpingo-oophorectomy specimen 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 -Peritoneal washings --> suspicious for malignant cells. - CA 125 level--> 68.6 (11/03/2016) increased level 122 ( 02/15/2017 ) -CEA level--> 3.8, CA 19-9 level--> 4.9 (11/03/2016) completed 6 cycles of adjuvant chemotherapy with Paclitaxel and Carboplatin ( between 01/25/17-04/19/2017 ) overall Poor prognosis CODE STATUS FULL CODE DVT PROPHYLAXIS moderate to high risk given hx of endometrial CA sub q heparin DISPOSITION clinically improving diet advanced to full liquid slow advance as tolerated possible discharge home in 1 -2 days Medicine follow up with Dr Segura Vital Signs: Date Time Temp Pulse Resp B/P (MAP) Pulse Ox O2 Delivery O2 Flow Rate FiO2 09/09/17 16:00 Room Air 09/09/17 15:13 36.9 67 16 176/83 (114) 93 Room Air 09/09/17 14:11 71 94 09/09/17 07:15 Room Air 09/09/17 07:14 37.0 64 16 167/77 (107) 93 Room Air 09/09/17 06:20 158/80 (106) 09/09/17 00:00 Room Air 09/08/17 23:23 59 170/78 (108) 09/08/17 22:53 36.8 61 16 173/83 (113) 92 Room Air Lab Results: Results Past 24 Hours Test 09/09/17 05:55 Range/Units Sodium Level 135 136-145 mmol/L Potassium Level 3.0 3.5-5.1 mmol/L Chloride Level 99 98-107 mmol/L Carbon Dioxide Level 24 21-32 mmol/L Anion Gap 12.0 3-11 mmol/L Blood Urea Nitrogen 16 7-18 mg/dl Creatinine 0.45 0.60-1.20 mg/dl Est Creatinine Clear Calc Drug Dose 76.7 ml/min Estimated GFR () 113.6 Estimated GFR (Non- 98.0 BUN/Creatinine Ratio 35.8 10-20 Random Glucose 55 70-99 mg/dl Calcium Level 7.9 8.5-10.1 mg/dl Magnesium Level 1.7 1.8-2.4 mg/dl
[2017-09-09 23:14] VITALS: BP 155/72; PULSE 67; TEMP 37.3; O2SAT 93
[2017-09-10 06:48] VITALS: BP 164/78; PULSE 57; TEMP 36.8; O2SAT 94
[2017-09-10] MEDS: NSS + 20MEQ KCL 1000ML 1,000 ML IV SCH ×2 (07:51→19:25)
[2017-09-10 08:09] LABS: CALCIUM 7.5 mg/dl (8.5-10.1); CREATININE 0.36 mg/dl (0.60-1.20); POTASSIUM 3.5 mmol/L (3.5-5.1)
[2017-09-10] MEDS: HEPARIN SOD 5000 UNIT/0.5 ML CARP SQ SCH ×2 (08:58→20:51)
--- NOTE | 2017-09-10 11:07 | Surgery Progress Note ---
Surgery Progress Note Date of Service Sep 10, 2017. Subjective NGT removed yesterday. Tolerated clears and just had diet advanced to full liquids. Had 1/2 cup of cream of wheat so far. Bowels are working but still very "runny". No further abdominal pain or nausea/ vomiting. Objective Vital Signs: Date Time Temp Pulse Resp B/P (MAP) Pulse Ox O2 Delivery O2 Flow Rate FiO2 09/10/17 09:48 Room Air 09/10/17 06:48 36.8 57 17 164/78 (106) 94 Room Air 09/09/17 23:33 Room Air 09/09/17 23:14 37.3 67 16 155/72 (99) 93 Room Air 09/09/17 16:00 Room Air 09/09/17 15:13 36.9 67 16 176/83 (114) 93 Room Air 09/09/17 14:11 71 94 Respiratory/Chest: no respiratory distress, no accessory muscle use Cardiovascular: regular rate, rhythm Abdomen: normal bowel sounds, non tender, soft, + distended (mild) Laboratory Results: Results Past 24 Hours Test 09/10/17 07:21 Range/Units Sodium Level 135 136-145 mmol/L Potassium Level 3.5 3.5-5.1 mmol/L Chloride Level 99 98-107 mmol/L Carbon Dioxide Level 27 21-32 mmol/L Anion Gap 8.0 3-11 mmol/L Blood Urea Nitrogen 8 7-18 mg/dl Creatinine 0.36 0.60-1.20 mg/dl Est Creatinine Clear Calc Drug Dose 95.9 ml/min Estimated GFR () 122.3 Estimated GFR (Non- 105.5 BUN/Creatinine Ratio 20.9 10-20 Random Glucose 82 70-99 mg/dl Calcium Level 7.5 8.5-10.1 mg/dl Magnesium Level 1.6 1.8-2.4 mg/dl Assessment & Plan Small bowel obstruction in setting of ovarian cancer - resolving. Will advance diet as tolerated. Likely stable for discharge if she tolerates diet.
[2017-09-10 15:08] VITALS: BP 159/78; PULSE 69; TEMP 36.9; O2SAT 94
[2017-09-10 16:00] VITALS: O2SAT 94
--- NOTE | 2017-09-10 18:35 | Progress Note ---
Internal Med Progress Note Date of Service: Sep 10, 2017. Provider Documentation: SUBJECTIVE: sitting on the chair comfortably afebrile tolerating full liquid diet moved bowels no nausea or abdominal pain wants to go home OBJECTIVE: Vital Signs-as noted below Exam: General-alert and oriented. Not in distress ENT-Normal hearing Neck-no neck masses supple Lungs-cta b/l no wheezing no crackles Heart-S1 and S2 heard regular rate and rthym, no murmurs Abdomen-Soft bowel sounds present non tender no distension Extremities-no edema no erythema Neuro-alert and awake moves extremities Lab data as noted below. ASSESSMENT & PLAN: SMALL BOWEL OBSTRUCTION was on NG tube fluids moving bowels NG tube taken off tolerating full liquid diet if tolerates soft diet plan for d/c today Hx of Ovarian cancer s/p extensive surgery -Diagnostic laparoscopy, exploratory Laparotomy, JOMAR/BSO , bilateral pelvic node dissection , resection of left common iliac lymph node , omentectomy , appendectomy by Dr Sheehan at [facility] [place] , on 12/29/[address] , omentum , appendix were -negative for malignancy Peritoneal washing -suspicious for malignant cell f/u needed LOW K/LOW MG : replaced HX OF CLUSTER HEADACHE /MIGRAINE : follows with Neurology Dr Lemos no complain of Headache hold Verapamil 80mg TID-due to SBO stable HYPONATREMIA : due to bowel obstruction , fluid loss /dehydration Na 135 today CODE STATUS FULL CODE DVT PROPHYLAXIS moderate to high risk given hx of endometrial CA sub q heparin DISPOSITION possible d/c today Vital Signs: Date Time Temp Pulse Resp B/P (MAP) Pulse Ox O2 Delivery O2 Flow Rate FiO2 09/10/17 16:00 94 Room Air 09/10/17 15:08 36.9 69 18 159/78 (105) 94 Room Air 09/10/17 09:48 Room Air 09/10/17 06:48 36.8 57 17 164/78 (106) 94 Room Air 09/09/17 23:33 Room Air 09/09/17 23:14 37.3 67 16 155/72 (99) 93 Room Air Lab Results: Results Past 24 Hours Test 09/10/17 07:21 Range/Units Sodium Level 135 136-145 mmol/L Potassium Level 3.5 3.5-5.1 mmol/L Chloride Level 99 98-107 mmol/L Carbon Dioxide Level 27 21-32 mmol/L Anion Gap 8.0 3-11 mmol/L Blood Urea Nitrogen 8 7-18 mg/dl Creatinine 0.36 0.60-1.20 mg/dl Est Creatinine Clear Calc Drug Dose 95.9 ml/min Estimated GFR () 122.3 Estimated GFR (Non- 105.5 BUN/Creatinine Ratio 20.9 10-20 Random Glucose 82 70-99 mg/dl Calcium Level 7.5 8.5-10.1 mg/dl Magnesium Level 1.6 1.8-2.4 mg/dl
[2017-09-10] MEDS ORDERED: NURSING VERBAL MED ORDER ONE (20:15)
[2017-09-10 23:21] VITALS: BP 162/84; PULSE 64; TEMP 37.2; O2SAT 93
--- NOTE | 2017-09-11 07:26 | Surgery Progress Note ---
Surgery Progress Note Date of Service Sep 11, 2017. Subjective Post OP Day: HD 7 + feeling well, + bowel movement, + flatus, + diet (fulls), No complaints, No nausea, No vomiting Objective Vital Signs: Date Time Temp Pulse Resp B/P (MAP) Pulse Ox O2 Delivery O2 Flow Rate FiO2 09/10/17 23:35 Room Air 09/10/17 23:21 37.2 64 16 162/84 (110) 93 Room Air 09/10/17 16:00 94 Room Air 09/10/17 15:08 36.9 69 18 159/78 (105) 94 Room Air 09/10/17 09:48 Room Air General Appearance: WD/WN, no apparent distress Head: normocephalic, atraumatic Neck: supple, trachea midline Respiratory/Chest: chest non-tender, lungs clear, normal breath sounds Cardiovascular: regular rate, rhythm, no gallop, no murmur Abdomen: normal bowel sounds, non tender, non distended, soft Extremities: non-tender, no pedal edema Assessment & Plan SBO, resolved -having BMs -regular diet -discharge per medical team -no surgical issues will sign off
[2017-09-11 07:34] VITALS: BP 155/83; PULSE 67; TEMP 36.6; O2SAT 95
[2017-09-11 08:04] VITALS: BP 155/83; PULSE 67; TEMP 36.6; O2SAT 95
[2017-09-11] MEDS: HEPARIN SOD 5000 UNIT/0.5 ML CARP SQ SCH (09:00)
--- NOTE | 2017-09-11 10:13 | Discharge Instructions ---
Discharge Instructions Date of Service Sep 11, 2017. Admission Reason for Admission: Small Bowel Obstruction Discharge Discharge Diagnosis / Problem: SBO Discharge Goals Goal(s): Decrease discomfort, Improve function Activity Recommendations Activity Limitations: resume your previous activity . Instructions / Follow-Up Instructions / Follow-Up FOLLOWUP WITH FAMILY DOCTOR ON Sep AT 12:45PM Current Hospital Diet Patient's current hospital diet: Low Fiber Diet Discharge Diet Recommended Diet: AHA Diet (Heart Healthy) Pending Studies Studies pending at discharge: no Medical Emergencies . Who to Call and When: Medical Emergencies: If at any time you feel your situation is an emergency, please call 911 immediately. . Non-Emergent Contact Non-Emergency issues call your: Primary Care Provider . . "Provider Documentation" section prepared by Aristides Parra. . VTE Core Measure Inpt VTE Proph given/why not?: Unfractionated heparin SQ
[2017-09-11] MEDS ORDERED: VERAPAMIL HCL 40 MG TAB PO STA (10:14)
--- NOTE | 2017-09-11 16:20 | Progress Note ---
Internal Med Progress Note Date of Service: Sep 11, 2017. Provider Documentation: SUBJECTIVE: resting comfortably afebrile tolerating soft diet moved bowels yesterday no nausea or abdominal pain wants to go home OBJECTIVE: Vital Signs-as noted below Exam: General-alert and oriented. Not in distress ENT-Normal hearing Neck-no neck masses supple Lungs-cta b/l no wheezing no crackles Heart-S1 and S2 heard regular rate and rthym, no murmurs Abdomen-Soft bowel sounds present non tender no distension Extremities-no edema no erythema Neuro-alert and awake moves extremities Lab data as noted below. ASSESSMENT & PLAN: SMALL BOWEL OBSTRUCTION was on NG tube fluids moving bowels NG tube taken off tolerating soft diet d/c home Hx of Ovarian cancer s/p extensive surgery -Diagnostic laparoscopy, exploratory Laparotomy, JOMAR/BSO , bilateral pelvic node dissection , resection of left common iliac lymph node , omentectomy , appendectomy by Dr Sheehan at [facility] [place] , on 12/29/[address] , omentum , appendix were -negative for malignancy Peritoneal washing -suspicious for malignant cell f/u needed LOW K/LOW MG : replaced HX OF CLUSTER HEADACHE /MIGRAINE : follows with Neurology Dr Lemos no complain of Headache hold Verapamil 80mg TID-due to SBO restart home meds on discharge HYPONATREMIA : due to bowel obstruction , fluid loss /dehydration Na 135 CODE STATUS FULL CODE DVT PROPHYLAXIS moderate to high risk given hx of endometrial CA sub q heparin discharged home Vital Signs: Date Time Temp Pulse Resp B/P (MAP) Pulse Ox O2 Delivery O2 Flow Rate FiO2 09/11/17 08:04 36.6 67 19 95 Room Air 09/11/17 07:34 36.6 67 19 155/83 (107) 95 Room Air 09/11/17 07:27 Room Air 09/10/17 23:35 Room Air 09/10/17 23:21 37.2 64 16 162/84 (110) 93 Room Air
--- NOTE | 2017-09-11 17:23 | Discharge Summary ---
Discharge Summary Date of Service Sep 11, 2017. Discharge Summary Admission Date: Sep 05, 2017 at 15:45 Discharge Date: Sep 11, 2017 Discharge Disposition: Home Principal Diagnosis: SBO Secondary Diagnoses/Problems: Ovarian cancer Total Hysterectomy HTN Migraine Appendectomy Cholecystectomy Procedures: CT ABD/PELVIS: 1. Findings highly suspicious for internal hernia in the right mid abdomen resulting in the small bowel obstruction. A closed loop obstruction of the herniated loop of bowel is not excluded. No CT evidence of bowel infarction at this time. Urgent surgical consultation is recommended. 2. Postsurgical changes of hysterectomy and bilateral salpingo-oophorectomy. 3. Chronic prominence of the biliary ducts and pancreatic duct. No gross evidence of a pancreatic head mass. 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 Consultations: SURGERY Medication Reconciliation Continued Medications: Aspirin (Aspirin Ec) 81 Mg Tab 81 MG PO DAILY Docusate Sodium (Colace) 100 Mg Cap 100 MG PO PRN for Constipation, CAP Gabapentin (Neurontin) 300 Mg Cap 600 MG PO HS, CAP with evening meal Verapamil (Calan) 80 Mg Tab 80 MG PO TID, TAB Admission Information HPI (per Admitting provider): 76 year old female with PMH of ovaria cancer s/p shemo and total hysterectomy, HTN, migriane present to the ER with abdominal pain. Pt said that abdominal pain started about 2 days ago associated with nausea and vomiting. Pt grade pain 9/10, constant, non radiating, achy and located in the mid hypogastric area. She said that her last episodes of vomiting was last night. She said that she has not been eating anything. Her last BM was yesterday that was normal. she denies any diarrhea, hematuria, chest pain, palpitation SOB or dysuria. Physical Exam (per Admitting): General Appearance: WD/WN, no apparent distress Head: normocephalic, atraumatic Eyes: PERRL, EOMI ENT: normal ENT inspection, hearing grossly normal Neck: supple, no JVD Respiratory/Chest: lungs clear, normal breath sounds, no respiratory distress, no accessory muscle use Cardiovascular: regular rate, rhythm, no JVD Abdomen/GI: + tenderness Back: no CVA tenderness Extremities/Musculoskelatal: no calf tenderness, no pedal edema Neurologic/Psych: no motor/sensory deficits, alert, oriented x 3 Skin: warm/dry, no rash Hospital Course SMALL BOWEL OBSTRUCTION was on NG tube fluids moving bowels NG tube taken off tolerating soft diet d/c home Hx of Ovarian cancer s/p extensive surgery -Diagnostic laparoscopy, exploratory Laparotomy, JOMAR/BSO , bilateral pelvic node dissection , resection of left common iliac lymph node , omentectomy , appendectomy by Dr Sheehan at [facility] , [place] , on 12/29/[address] , omentum , appendix were -negative for malignancy Peritoneal washing -suspicious for malignant cell f/u needed LOW K/LOW MG : replaced HX OF CLUSTER HEADACHE /MIGRAINE : follows with Neurology Dr Lemos no complain of Headache hold Verapamil 80mg TID-due to SBO restart home meds on discharge HYPONATREMIA : due to bowel obstruction , fluid loss /dehydration Na 135 CODE STATUS FULL CODE DVT PROPHYLAXIS moderate to high risk given hx of endometrial CA sub q heparin discharged home Total time spent on discharge = 35MINUTES This includes examination of the patient, discharge planning, medication reconciliation, and communication with other providers. Discharge Instructions Discharge Instructions Date of Service Sep 11, 2017. Admission Reason for Admission: Small Bowel Obstruction Discharge Discharge Diagnosis / Problem: SBO Discharge Goals Goal(s): Decrease discomfort, Improve function Activity Recommendations Activity Limitations: resume your previous activity . Instructions / Follow-Up Instructions / Follow-Up FOLLOWUP WITH FAMILY DOCTOR ON Sep AT 12:45PM Current Hospital Diet Patient's current hospital diet: Low Fiber Diet Discharge Diet Recommended Diet: AHA Diet (Heart Healthy) Pending Studies Studies pending at discharge: no Medical Emergencies . Who to Call and When: Medical Emergencies: If at any time you feel your situation is an emergency, please call 911 immediately. . Non-Emergent Contact Non-Emergency issues call your: Primary Care Provider . . "Provider Documentation" section prepared by Aristides Parra. . VTE Core Measure Inpt VTE Proph given/why not?: Unfractionated heparin SQ
== END 2017-09-11 11:11 | disposition home or self-care (01) | DRG 389 ==
LOC: C.EDB 10:37 → C.MSW 15:45 → ENRESERV 16:00
PROVIDERS: ADMIT Internal Medicine; ATTEND Internal Medicine
DX: K56.609 Unspecified intestinal obstruction, unspecified as to partial versus complete obstruction (principal); E87.1 Hypo-osmolality and hyponatremia; C78.6 Secondary malignant neoplasm of retroperitoneum and peritoneum; I10 Essential (primary) hypertension; Z85.43 Personal history of malignant neoplasm of ovary; Z79.82 Long term (current) use of aspirin; Z90.710 Acquired absence of both cervix and uterus; Z90.722 Acquired absence of ovaries, bilateral

== ENCOUNTER 2017-10-03 17:44 | Inpatient (IN) | payer OTHER ==
[~2017-10-03] VITALS: Ht 167.6 cm; Wt 44.6 kg
[~2017-10-03 17:44] MED LIST changes: +DOCU-94 PO; +GABA-113 PO; -LISI-725 PO; -NITR-5 PO; -SUMA50TA15 PO
[2017-10-03] MEDS ORDERED: ONDANSETRON INJ 2 MG/ML 2 ML VIAL IV STA (19:37)
[2017-10-03] MEDS ORDERED: SODIUM CHLORIDE 0.9% 250ML 250 ML IV STA (19:37)
[2017-10-03] MEDS ORDERED: MoRPHine SULFATE 2 MG/ML CARP IV STA (19:37)
[2017-10-03] MEDS ORDERED: SODIUM CHLORIDE 0.9% 1000ML 1,000 ML IV STA (19:37)
--- NOTE | 2017-10-03 19:42 | EMERGENCY ROOM VISIT NOTE ---
History Report prepared by Don: Brissa Veras Under the Supervision of: Dr. Stephenie Gramajo M.D. First contact with patient: 19:27 Chief Complaint: GI ASSESSMENT Stated Complaint: BOWEL BLOCKAGE History of Present Illness The patient is a 76 year old female who presents to the Emergency Room with complaints of stomach pain beginning around 1300 today. She started throwing up while driving and had to pulley maintainer. The patient got home and felt "very warm" and and then "very cold." She denies hematochezia and hematemesis. The patient had a bowel obstruction last month for which she was admitted and conservatively treated. Patient had surgery for her ovarian cancer at [facility]. The patient has a history of ovarian cancer and high blood pressure. Source of History: patient Onset: 1300 today Position: other Quality: other (vomiting ) Associated Symptoms: + fevers, + chills, + vomiting, No hematochezia Note: negative hematemesis Review of Systems See HPI for pertinent positives & negatives. A total of 10 systems reviewed and were otherwise negative. Past Medical & Surgical Medical Problems: (1) Hypertension (2) Migraine headache (3) Ovarian cancer (4) SBO (small bowel obstruction) Surgical Problems: (1) History of appendectomy (2) History of cholecystectomy (3) History of total hysterectomy Family History Cholecystitis Heart disease Hypertension Lung disease Social History Smoking Status: Former Smoker Alcohol Use: none Drug Use: none Marital Status: Housing Status: lives with family Occupation Status: retired Current/Historical Medications Scheduled Gabapentin (Neurontin), 600 MG PO HS Verapamil (Calan), 80 MG PO TID Scheduled PRN Docusate Sodium (Colace), 100 MG PO for Constipation Allergies Coded Allergies: Carbamazepine (Verified Allergy, Mild, ITCHING, 10/03/17) Valproic Acid (Verified Allergy, Mild, ITCH, 10/03/17) Physical Exam Vital Signs Date Time Temp Pulse Resp B/P (MAP) Pulse Ox O2 Delivery O2 Flow Rate FiO2 10/03/17 21:11 79 20 161/74 96 Room Air 10/03/17 17:57 37.1 75 20 131/93 93 Room Air Physical Exam Vital signs reviewed. General: Weak, cachectic female, in no significant distress. HEENT: No scleral icterus, PERRLA, neck supple. Atraumatic. Cardiovascular: Regular rate and rhythm, no extra sounds. Pulmonary: Clear to auscultation bilaterally, normal work of breathing. Abdomen: Soft, nontender, distended with positive tympany, positive bowel sounds. Musculoskeletal: Atraumatic, no peripheral edema. Neurologic: Patient awake alert and oriented x 3 Skin: Warm, dry, no rash Medical Decision & Procedures ER Provider Diagnostic Interpretation: Radiology results as stated below per my review and radiologist interpretation: CHEST ONE VIEW PORTABLE CLINICAL HISTORY: SBO, distended abd, FA dyspnea COMPARISON STUDY: 09/09/2017 FINDINGS: Mild emphysematous and chronic granulomatous change. No focal infiltrate. Diaphragms smooth but somewhat flattened. IMPRESSION: Chronic and emphysematous change. No acute process. The above report was generated using voice recognition software. It may contain grammatical, syntax or spelling errors. Electronically signed by: Mc Burks M.D. 10/03/2017 8:19 PM Dictated Date/Time: 10/03/2017 8:19 PM ABD/PELVIS IV CONTRAST ONLY CT DOSE: 229.27 mGy.cm HISTORY: Bowel obstruction SBO, h/o ovarian cancer TECHNIQUE: Multiaxial CT images of the abdomen and pelvis were performed following the use of intravenous contrast. A dose lowering technique was utilized adhering to the principles of ALARA. COMPARISON STUDY: 09/05/2017 FINDINGS: Lung bases are clear. Trace amount of perihepatic ascites similar compared to the prior study. No significant space-occupying lesions within the liver. Kidneys enhance uniformly. Atherosclerotic change abdominal aorta unchanged from the prior exam. Unchanging prominence of the biliary ductal system. Distended loops of small bowel extending from the left central abdominal region through the soft tissue pelvic region. Moderate amount of ascites within the pelvic cul-de-sac. Etiology is not clear. A well-defined obstructing mass or lesion is not appreciated. The bowel pattern distention is at some variance to the prior study which related to the right upper quadrant. Current evaluation indicates of the low central pelvis although again a true obstructing lesion is not appreciated. No definitive evidence for pneumatosis. No significant colonic distention of the cochlea current study. IMPRESSION: 1. Findings consistent with a nonspecific small bowel obstructive process most likely in the central or upper pelvic region. 2. The degree of small bowel distention is similar as compared to the prior study with a moderate amount of low pelvic ascites and a mild amount of perihepatic ascites. 3. Etiology of the small bowel obstruction given is unknown but appears to be different from the right upper quadrant etiology on the prior study . A well-defined obstructing mass is not appreciated on this study. The above report was generated using voice recognition software. It may contain grammatical, syntax or spelling errors. Electronically signed by: Mc Burks M.D. 10/03/2017 9:20 PM Dictated Date/Time: 10/03/2017 9:14 PM Laboratory Results Test 10/03/17 20:20 Total Bilirubin 0.3 mg/dl (0.2-1) Direct Bilirubin < 0.1 mg/dl (0-0.2) Aspartate Amino Transf (AST/SGOT) 16 U/L (15-37) Alanine Aminotransferase (ALT/SGPT) 16 U/L (12-78) Alkaline Phosphatase 80 U/L (45-117) Total Protein 7.2 gm/dl (6.4-8.2) Albumin 3.4 gm/dl (3.4-5.0) Lipase 108 U/L (73-393) Laboratory results per my review. Medications Administered Medications (Trade) Dose Ordered Sig/Abel Route Start Time Stop Time Status Last Admin Dose Admin Sodium Chloride 250 ml @ 999 mls/hr Q16M STAT IV 10/03/17 19:37 10/03/17 19:52 DC 10/03/17 19:37 999 MLS/HR Sodium Chloride 1,000 ml @ 125 mls/hr Q8H STAT IV 10/03/17 19:37 10/03/17 23:55 DC 10/03/17 19:37 125 MLS/HR Morphine Sulfate (MoRPHine SULFATE INJ) 2 mg NOW STAT IV 10/03/17 19:37 10/03/17 19:41 DC 10/03/17 20:51 2 MG Promethazine HCl 12.5 mg/Sodium Chloride 50.5 ml @ 204 mls/hr NOW STAT IV 10/03/17 20:28 10/03/17 20:42 DC 10/03/17 20:51 204 MLS/HR ECG Indication: vomiting Rate (beats per minute): 64 Rhythm: normal sinus Findings: left axis deviation, other (previous septal infarct, left atrial margins) ED Course 1934: Past medical records reviewed. The patient was evaluated in room A11. A complete history and physical examination was performed. 1936: Ordered Morphine Sulfate 2 mg IV, Zofran Inj 4 mg IV, sodium chloride 250 ml @ 999 mls/hr IV 1999: Ordered Ioversol 111 ml IV 2027: Ordered Promethazine HCl 50.5 ml @ 204 mls/hr IV 2129: I reevaluated the patient at this time. She appeared content and was resting comfortably. 2199: Upon reevaluation, the patient is resting comfortably. I discussed laboratory and radiographic results with her. She verbalized agreement of the treatment plan. The patient will be evaluated and referred to surgery for further management and care. Medical Decision Differential diagnosis includes small bowel obstruction, visceral perforation, gastric distention, constipation, gastroenteritis This patient was evaluated and appeared to be in no significant distress. Physical examination reveals abdominal distention. Chest x-ray was performed and reveals chronic changes, no acute abnormality. CT scan of the abdomen and pelvis with IV contrast reveals evidence of a small bowel obstruction with a separate transition point that last month. Patient was given IV morphine and Phenergan for her symptoms. NG tube was placed. General surgery was consulted. The patient will be evaluated by the internal medicine service for further management. The patient is aware of the plan and agrees. Medication Reconcilliation Current Medication List: was personally reviewed by me Blood Pressure Screening Patient's blood pressure: Normal blood pressure Consults Time Called: 2109 Consulting Physician: Dr. Moncada Returned Call: 2115 The patient will be further evaluated and referred to surgery Impression Primary Impression: SBO (small bowel obstruction) Scribe Attestation The scribe's documentation has been prepared under my direction and personally reviewed by me in its entirety. I confirm that the note above accurately reflects all work, treatment, procedures, and medical decision making performed by me. Departure Information Dispostion Admitted as an inpatient Referrals Yefri Segura M.D. (PCP) Patient Instructions My [facility]
[2017-10-03] MEDS ORDERED: OPTIRAY 320 IV PRN (20:00)
--- NOTE | 2017-10-03 20:20 | DIAGNOSTIC IMAGING REPORT ---
CHEST ONE VIEW PORTABLE CLINICAL HISTORY: SBO, distended abd, FA dyspnea COMPARISON STUDY: 09/09/2017 FINDINGS: Mild emphysematous and chronic granulomatous change. No focal infiltrate. Diaphragms smooth but somewhat flattened. IMPRESSION: Chronic and emphysematous change. No acute process. The above report was generated using voice recognition software. It may contain grammatical, syntax or spelling errors. Electronically signed by: Mc Burks M.D. 10/03/2017 8:19 PM Dictated Date/Time: 10/03/2017 8:19 PM
[2017-10-03] MEDS ORDERED: PROMETHAZINE HCL INJ 12.5 MG in SODIUM CHLORIDE 0.9% 50ML 50 ML IV STA (20:28)
[2017-10-03 20:35] LABS: BASO % 0.1 %; BASO ABS # 0.01 K/uL (0-0.2); EOS % 0.4 %; EOS ABS # 0.03 K/uL (0-0.5); HEMATOCRIT 41.5 % (37-47); HEMOGLOBIN 13.4 g/dL (12.0-16.0); IG# 0.01 K/uL (0.00-0.02); LYMPH % 12.1 %; LYMPH ABS # 0.82 K/uL (1.2-3.4); MEAN CELL VOLUME 95.8 fL (80-100); MEAN CORPUSCULAR HEMOGLOBIN 30.9 pg (25-34); MEAN CORPUSCULAR HGB CONC 32.3 g/dl (32-36); MEAN PLATELET VOLUME 8.6 fL (7.4-10.4); MONO % 2.4 %; MONO ABS # 0.16 K/uL (0.11-0.59); NEUT % 84.9 %; NEUT ABS # 5.76 K/uL (1.4-6.5); PLATELET COUNT 199 K/uL (130-400); RED CELL DISTRIBUTION WIDTH CV 14.5 % (11.5-14.5); RED CELL DISTRIBUTION WIDTH SD 51.3 fL (36.4-46.3); WHITE BLOOD COUNT 6.79 K/uL (4.8-10.8)
[2017-10-03 20:50] LABS: ALBUMIN 3.4 gm/dl (3.4-5.0); ALT/SGPT 16 U/L (12-78); BLOOD UREA NITROGEN 21 mg/dl (7-18); CALCIUM 9.4 mg/dl (8.5-10.1); CARBON DIOXIDE 30 mmol/L (21-32); CREATININE 0.71 mg/dl (0.60-1.20); GLUCOSE 111 mg/dl (70-99); LIPASE 108 U/L (73-393); POTASSIUM 4.1 mmol/L (3.5-5.1); SODIUM 138 mmol/L (136-145)
[2017-10-03 20:53] LABS: ALKALINE PHOSPHATASE 80 U/L (45-117); AST/SGOT 16 U/L (15-37); TOTAL PROTEIN 7.2 gm/dl (6.4-8.2)
--- NOTE | 2017-10-03 21:21 | DIAGNOSTIC IMAGING REPORT ---
ABD/PELVIS IV CONTRAST ONLY CT DOSE: 229.27 mGy.cm HISTORY: Bowel obstruction SBO, h/o ovarian cancer TECHNIQUE: Multiaxial CT images of the abdomen and pelvis were performed following the use of intravenous contrast. A dose lowering technique was utilized adhering to the principles of ALARA. COMPARISON STUDY: 09/05/2017 FINDINGS: Lung bases are clear. Trace amount of perihepatic ascites similar compared to the prior study. No significant space-occupying lesions within the liver. Kidneys enhance uniformly. Atherosclerotic change abdominal aorta unchanged from the prior exam. Unchanging prominence of the biliary ductal system. Distended loops of small bowel extending from the left central abdominal region through the soft tissue pelvic region. Moderate amount of ascites within the pelvic cul-de-sac. Etiology is not clear. A well-defined obstructing mass or lesion is not appreciated. The bowel pattern distention is at some variance to the prior study which related to the right upper quadrant. Current evaluation indicates of the low central pelvis although again a true obstructing lesion is not appreciated. No definitive evidence for pneumatosis. No significant colonic distention of the cochlea current study. IMPRESSION: 1. Findings consistent with a nonspecific small bowel obstructive process most likely in the central or upper pelvic region. 2. The degree of small bowel distention is similar as compared to the prior study with a moderate amount of low pelvic ascites and a mild amount of perihepatic ascites. 3. Etiology of the small bowel obstruction given is unknown but appears to be different from the right upper quadrant etiology on the prior study . A well-defined obstructing mass is not appreciated on this study. The above report was generated using voice recognition software. It may contain grammatical, syntax or spelling errors. Electronically signed by: Mc Burks M.D. 10/03/2017 9:20 PM Dictated Date/Time: 10/03/2017 9:14 PM
--- NOTE | 2017-10-03 22:32 | Surgery Consultation ---
Consultation Date of Consultation: Oct 03, 2017. Attending Physician: Reason for Consultation: Small Bowel Obstruction (Dilip Lee PA-C) History of Present Illness Patient is a 76F who presents to the ED with abdominal bloating/pain, nausea, and vomiting which started earlier today around 1300. States she at [employer] soup for lunch before her symptoms started. She has not eaten anything since then. She was seen the ED 09/05/17 for a small bowel obstruction by Dr. Alanis and was admitted at that time. Her obstruction was resolved with conservative management and she was discharged home on 09/11/17. Denies any symptoms after her discharge until today. States she started noticing abdominal bloating/pain and then she became nauseated and had 1 episode of vomiting. Denies any blood in her vomit. Reports her last BM was this AM. She has been urinating without trouble. PSHx significant cholecystectomy and JOMAR-SBO December 2016 due to Ovarian cancer. She states they also took her appendix out during her JOMAR-SBO procedure. Reports they caught her ovarian cancer early and she did not require any chemotherapy or radiation. She is scheduled to see her oncologist in October [address] scan. Denies any other abdominal surgeries in the past. States she did feel a bit cold earlier today but denies fever/chills. She does currently take Aspirin 81mg QD and denies use of other blood thinning or anticoagulant medications. At this time her abdominal pain is controlled and she does not report any nausea or vomiting. States her abdomen does feel a bit full at this time. She did receive a dose of Zofran in the ED which made her dizzy so she then received a dose of promethazine as well which has controlled her nausea. WBC WNL. CT abd/pelvis w/ IV contrast reveals findings consistent with a nonspecific small bowel obstructive process most likely in the central or upper pelvic region. The degree of small bowel distention is similar as compared to the prior study with a moderate amount of low pelvic ascites and a mild amount of perihepatic ascites. Etiology of the small bowel obstruction given is unknown but appears to be different from the right upper quadrant etiology on the prior study . No well-defined obstructing masses identified. (Dilip Lee, SYLVIAC) Past Medical/Surgical History Medical Problems: (1) History of ovarian cancer Status: Acute (2) Ileus Status: Acute (3) Nausea Status: Acute (4) Small bowel obstruction Status: Acute (5) Weakness Status: Acute (Dilip Lee PA-C) Family History Cholecystitis Heart disease Hypertension Lung disease (Dilip Lee PA-C) Cholecystitis Heart disease Hypertension Lung disease (Alok Hill M.D.) Social History Smoking Status: Former Smoker Drug Use: none Marital Status: Housing Status: lives with family Occupation Status: retired (Dilip Lee PA-C) Allergies Coded Allergies: Carbamazepine (Verified Allergy, Mild, ITCHING, 10/03/17) Valproic Acid (Verified Allergy, Mild, ITCH, 10/03/17) Home Medications Scheduled Aspirin (Aspirin Ec), 81 MG PO DAILY Gabapentin (Neurontin), 600 MG PO HS Verapamil (Calan), 80 MG PO TID Scheduled PRN Docusate Sodium (Colace), 100 MG PO for Constipation Current Inpatient Medications Current Inpatient Medications Medications (Trade) Dose Ordered Sig/Abel Route Start Time Stop Time Status Last Admin Dose Admin Sodium Chloride 1,000 ml @ 125 mls/hr Q8H STAT IV 10/03/17 19:37 10/04/17 03:36 10/03/17 19:37 125 MLS/HR Ioversol (Optiray 320) 111 ml UD PRN IV 10/03/17 20:00 10/07/17 19:59 (Dilip Lee PA-C) Review of Systems Constitutional: No fever, No chills Cardiovascular: No chest pain Abdomen: + pain (Generalized), + nausea (earlier today), + vomiting (earlier today, no blood), + constipation (No BM since this AM), No diarrhea Genitourinary - Female: No dysuria, No hematuria (Dilip Lee PA-C) Physical Exam Date Time Temp Pulse Resp B/P (MAP) Pulse Ox O2 Delivery O2 Flow Rate FiO2 10/03/17 21:11 79 20 161/74 96 Room Air 10/03/17 17:57 37.1 75 20 131/93 93 Room Air Patient resting in bed. General Appearance: WD/WN, no apparent distress Head: normocephalic, atraumatic ENT: hearing grossly normal Neck: trachea midline Respiratory/Chest: no respiratory distress, no accessory muscle use Abdomen/GI: soft, no organomegaly, no pulsatile mass, + tenderness (Generalized , most prominent in Epigastric area. ), + abnormal bowel sounds (mildly hyperactive) Neurologic/Psych: alert, normal mood/affect, oriented x 3 Skin: normal color, warm/dry (NeenahDilip Del Real, PAQuanC) Laboratory Results Last 24 Hours Test 10/03/17 20:20 White Blood Count 6.79 K/uL Red Blood Count 4.33 M/uL Hemoglobin 13.4 g/dL Hematocrit 41.5 % Mean Corpuscular Volume 95.8 fL Mean Corpuscular Hemoglobin 30.9 pg Mean Corpuscular Hemoglobin Concent 32.3 g/dl Platelet Count 199 K/uL Mean Platelet Volume 8.6 fL Neutrophils (%) (Auto) 84.9 % Lymphocytes (%) (Auto) 12.1 % Monocytes (%) (Auto) 2.4 % Eosinophils (%) (Auto) 0.4 % Basophils (%) (Auto) 0.1 % Neutrophils # (Auto) 5.76 K/uL Lymphocytes # (Auto) 0.82 K/uL Monocytes # (Auto) 0.16 K/uL Eosinophils # (Auto) 0.03 K/uL Basophils # (Auto) 0.01 K/uL RDW Standard Deviation 51.3 fL RDW Coefficient of Variation 14.5 % Immature Granulocyte % (Auto) 0.1 % Immature Granulocyte # (Auto) 0.01 K/uL Sodium Level 138 mmol/L Potassium Level 4.1 mmol/L Chloride Level 102 mmol/L Carbon Dioxide Level 30 mmol/L Anion Gap 6.0 mmol/L Blood Urea Nitrogen 21 mg/dl Creatinine 0.71 mg/dl Est Creatinine Clear Calc Drug Dose 48.6 ml/min Estimated GFR () 96.6 Estimated GFR (Non- 83.3 BUN/Creatinine Ratio 29.3 Random Glucose 111 mg/dl Calcium Level 9.4 mg/dl Magnesium Level 2.0 mg/dl Total Bilirubin 0.3 mg/dl Direct Bilirubin < 0.1 mg/dl Aspartate Amino Transf (AST/SGOT) 16 U/L Alanine Aminotransferase (ALT/SGPT) 16 U/L Alkaline Phosphatase 80 U/L Total Protein 7.2 gm/dl Albumin 3.4 gm/dl Lipase 108 U/L (Dilip Lee, PA-C) Assessment & Plan Abdominal pain, nausea, vomiting, CT Findings consistent with a nonspecific small bowel obstructive process most likely in the central or upper pelvic region. Pain Controlled, No N/V at this time. No Leukocytosis. Will opt for conservative management at this time. May need to discuss possible exploratory surgery options in the future as this is her second SBO episode within the past month. NPO, IV Fluids, IV pain medication PRN, IV Phenergan PRN for nausea (as zofran made her dizzy), SCDs. I think we can hold off on an NGT at this point given that her N/V is controlled. May need to place one if she develops any further nausea or vomiting. Admit per hospitalist team. Will discuss findings with Dr. Hill in AM. Please contact with questions or concerns. (Dilip Lee, CARON-C) 10/03/17- adm w/ recurrent sxs of abd bloating, N/V less than 24 hrs- CT evidence of sbo- h/o JOMAR/BSO 12/2016- ([facility] [place]) for ovarian cancer. Apparently had chemo, no radiation. similar episode req NG 08/2017- resolved w/o surgery For now- nonoperative mgt- discussed possible need for surgery if worsens- last visit they considered transfer to [facility] if surgery needed- - I did examine pt- min tenderness, mildly distended- hold KENROY Hill (Alok Hill M.D.)
[2017-10-03] MEDS ORDERED: MoRPHine SULFATE 4 MG/ML 1 ML CARP\\VIAL IV PRN (22:45)
[2017-10-03] MEDS ORDERED: PROMETHAZINE HCL INJ 12.5 MG in SODIUM CHLORIDE 0.9% 50ML 50 ML IV PRN (22:45)
[2017-10-03] MEDS ORDERED: ACETAMINOPHEN IV 100 ML IV PRN (22:45)
[2017-10-03] MEDS ORDERED: VERAPAMIL HCL 40 MG TAB PO ONE (23:01)
[2017-10-03] MEDS ORDERED: KETOROLAC TROMETHAMINE 15 MG/ML VIAL IV. PRN (23:15)
[2017-10-03] MEDS ORDERED: HYDROmorphone INJ 0.5 MG/0.5 ML SYR IV PRN (23:15)
[2017-10-03] MEDS ORDERED: TRAMADOL HCL 50 MG TAB PO PRN (23:15)
[2017-10-03] MEDS ORDERED: PROCHLORPERAZINE INJ 5 MG in SYRINGE 4 ML IV PRN (23:15)
[2017-10-03] MEDS ORDERED: ACETAMINOPHEN 325 MG TAB PO PRN (23:15)
[2017-10-03 23:50] VITALS: BP 187/81; PULSE 59; TEMP 37; Ht 167.6 cm; Wt 44.6 kg
[2017-10-03] MEDS: MoRPHine SULFATE 2 MG/ML CARP IV PRN (23:56)
[2017-10-04 00:30] VITALS: BP 177/81; PULSE 84; O2SAT 98
--- NOTE | 2017-10-04 01:07 | HISTORY & PHYSICAL EXAMINATION ---
DATE OF ADMISSION: 10/03/2017 PRIMARY CARE DOCTOR: Yefri Segura MD CHIEF COMPLAINT: Abdominal pain. HISTORY OF PRESENT ILLNESS: History obtained from patient, family, records. Medical history significant for ovarian cancer status post surgery/chemotherapy (2017), hypertension, past tobacco abuse. Recent confinement last month for bowel obstruction, Resolved with conservative management. Today, she had achy abdominal pain, with nausea and vomiting while driving. She had to black puller. No chest pain or shortness of breath. Good bowel movement. Patient brought to the Emergency Room. MEDICAL HISTORY: As above. Normal CA125 level last June,. SURGERIES: She has had hysterectomy, appendectomy, carpal tunnel surgery, gynecologic procedures, ulnar nerve surgery. HOME MEDICATIONS: Include gabapentin, verapamil, naproxen, aspirin. ALLERGIES: VALPROIC ACID AND TEGRETOL. FAMILY HISTORY: Family history of colon cancer, lung cancer, stroke, diabetes and breast cancer. PERSONAL AND SOCIAL HISTORY: Past tobacco use, no chronic intake of alcohol. 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 REVIEW OF SYSTEMS: As per HPI. All 10 systems reviewed. All other ROS negative. PHYSICAL EXAMINATION: VITAL SIGNS: Blood pressure was noted to be 131/90, pulse 90, RR 20, temperature 37, sats 98 on room air. GENERAL: Noted to be hyposthenic, comfortable, no respiratory distress. SKIN: Normal color, warm. HEENT: [place] palpebral conjunctiva. No ptosis. Dry mucosa. NECK: Supple. No tenderness. CHEST: Clear to auscultation. No tenderness. HEART: Regular rate and rhythm. No murmur. ABDOMEN: Soft, nontender. EXTREMITIES: No edema, no tenderness. No gross deformities. NEUROLOGIC: Coherent. No gross focality. LABORTORIES: Hemoglobin 13, hematocrit 41, white blood cell count 6.7, platelets 199. Sodium 137, potassium 4.1, chloride 102, CO2 30, BUN 21, creatinine 0.7, glucose 111, LFTs, lipase normal. CT abdomen and pelvis showed nonspecific small bowel obstructive process similar to previous, mild amount of perihepatic ascites. ASSESSMENT: 1. Recurrent bowel obstruction. hx ovarian cancer surgery. 2. Hypertension, stable. 3. Past tobacco abuse. 4. Malnutrition, low BMI. PLAN: GMF analgesia, antiemetics, bowel rest, IV fluids. NGT insertion to facilitate decompression if with recurrence of vomiting Surgery consult. RE RECURRENT SBO (ER provider already in touch with the surgeon alteration worker, Dr. Hill.) Nutrition consult RE low BMI. DVT prophylaxis, Lovenox subQ. Full code. MTDD
[2017-10-04 03:55] VITALS: BP 153/89; PULSE 82; TEMP 37.2; O2SAT 94
[2017-10-04] MEDS ORDERED: SODIUM CHLORIDE 0.9% 1000ML 1,000 ML IV SCH (04:30)
[2017-10-04 06:07] LABS: BASO % 0.2 %; BASO ABS # 0.01 K/uL (0-0.2); EOS % 0.8 %; EOS ABS # 0.05 K/uL (0-0.5); HEMATOCRIT 41.1 % (37-47); HEMOGLOBIN 13.5 g/dL (12.0-16.0); IG# 0.02 K/uL (0.00-0.02); LYMPH % 13.9 %; LYMPH ABS # 0.89 K/uL (1.2-3.4); MEAN CELL VOLUME 95.6 fL (80-100); MEAN CORPUSCULAR HEMOGLOBIN 31.4 pg (25-34); MEAN CORPUSCULAR HGB CONC 32.8 g/dl (32-36); MEAN PLATELET VOLUME 8.9 fL (7.4-10.4); MONO ABS # 0.45 K/uL (0.11-0.59); NEUT % 77.8 %; PLATELET COUNT 190 K/uL (130-400); RED CELL DISTRIBUTION WIDTH CV 14.8 % (11.5-14.5); RED CELL DISTRIBUTION WIDTH SD 51.6 fL (36.4-46.3); WHITE BLOOD COUNT 6.42 K/uL (4.8-10.8)
--- NOTE | 2017-10-04 06:40 | Surgery Progress Note ---
Surgery Progress Note Date of Service Oct 04, 2017. Subjective resting at present- pain last pm- Morphine given Objective Vital Signs: Date Time Temp Pulse Resp B/P (MAP) Pulse Ox O2 Delivery O2 Flow Rate FiO2 10/04/17 03:55 37.2 82 18 153/89 (110) 94 Room Air 10/04/17 00:30 84 18 177/81 (113) 98 Room Air 10/03/17 23:50 Room Air 10/03/17 23:50 37.0 59 18 187/81 Room Air 10/03/17 23:16 71 20 135/81 95 10/03/17 21:11 79 20 161/74 96 Room Air 10/03/17 17:57 37.1 75 20 131/93 93 Room Air General Appearance: no apparent distress Abdomen: + distended Laboratory Results: Results Past 24 Hours Test 10/03/17 20:20 10/04/17 04:30 10/04/17 05:43 Range/Units White Blood Count 6.79 6.42 4.8-10.8 K/uL Red Blood Count 4.33 4.30 4.2-5.4 M/uL Hemoglobin 13.4 13.5 12.0-16.0 g/dL Hematocrit 41.5 41.1 37-47 % Mean Corpuscular Volume 95.8 95.6 80-100 fL Mean Corpuscular Hemoglobin 30.9 31.4 25-34 pg Mean Corpuscular Hemoglobin Concent 32.3 32.8 32-36 g/dl Platelet Count 199 190 130-400 K/uL Mean Platelet Volume 8.6 8.9 7.4-10.4 fL Neutrophils (%) (Auto) 84.9 77.8 % Lymphocytes (%) (Auto) 12.1 13.9 % Monocytes (%) (Auto) 2.4 7.0 % Eosinophils (%) (Auto) 0.4 0.8 % Basophils (%) (Auto) 0.1 0.2 % Neutrophils # (Auto) 5.76 5.00 1.4-6.5 K/uL Lymphocytes # (Auto) 0.82 0.89 1.2-3.4 K/uL Monocytes # (Auto) 0.16 0.45 0.11-0.59 K/uL Eosinophils # (Auto) 0.03 0.05 0-0.5 K/uL Basophils # (Auto) 0.01 0.01 0-0.2 K/uL RDW Standard Deviation 51.3 51.6 36.4-46.3 fL RDW Coefficient of Variation 14.5 14.8 11.5-14.5 % Immature Granulocyte % (Auto) 0.1 0.3 % Immature Granulocyte # (Auto) 0.01 0.02 0.00-0.02 K/uL Sodium Level 138 136-145 mmol/L Potassium Level 4.1 3.5-5.1 mmol/L Chloride Level 102 98-107 mmol/L Carbon Dioxide Level 30 21-32 mmol/L Anion Gap 6.0 3-11 mmol/L Blood Urea Nitrogen 21 7-18 mg/dl Creatinine 0.71 0.60-1.20 mg/dl Est Creatinine Clear Calc Drug Dose 48.6 ml/min Estimated GFR () 96.6 Estimated GFR (Non- 83.3 BUN/Creatinine Ratio 29.3 10-20 Random Glucose 111 70-99 mg/dl Calcium Level 9.4 8.5-10.1 mg/dl Magnesium Level 2.0 1.8-2.4 mg/dl Total Bilirubin 0.3 0.2-1 mg/dl Direct Bilirubin < 0.1 0-0.2 mg/dl Aspartate Amino Transf (AST/SGOT) 16 15-37 U/L Alanine Aminotransferase (ALT/SGPT) 16 12-78 U/L Alkaline Phosphatase 80 45-117 U/L Total Protein 7.2 6.4-8.2 gm/dl Albumin 3.4 3.4-5.0 gm/dl Lipase 108 73-393 U/L Prothrombin Time 10.1 9.0-12.0 SECONDS Prothromb Time International Ratio 1.0 0.9-1.1 Assessment & Plan 10/04/17- adm w/ recurrent sbo- she will likely need NG tube to avoid worsening.- With CT findings , I think she will benefit from lysis of adhesions, could be tumor - less likely. will discuss with med team- probable transfer to [facility] [place]
[2017-10-04 06:49] LABS: CALCIUM 9.1 mg/dl (8.5-10.1); CREATININE 0.67 mg/dl (0.60-1.20); PHOSPHORUS 3.2 mg/dl (2.5-4.9); POTASSIUM 3.8 mmol/L (3.5-5.1)
[2017-10-04] MEDS: VERAPAMIL HCL 40 MG TAB PO SCH ×3 (07:42→21:16)
[2017-10-04] MEDS: D5NSS + 20MEQ KCL 1,000 ML IV SCH ×2 (07:42→17:58)
[2017-10-04] MEDS: DOCUSATE SODIUM 100 MG CAP PO SCH (07:57)
--- NOTE | 2017-10-04 08:43 | Progress Note ---
Medicine Progress Note Date & Time of Visit: Oct 04, 2017 at 08:38. Subjective patient seen resting in bed not in distress, appears comfortable overall just had NG tube placed, tolerating so far still has mild-moderate abdominal pain, occasional nausea no flatus/BM yet reports good urine output denies chest pain, dyspnea, palpitations, dizziness Objective Last 8 Hrs Date Time Temp Pulse Resp B/P (MAP) Pulse Ox O2 Delivery O2 Flow Rate FiO2 10/04/17 03:55 37.2 82 18 153/89 (110) 94 Room Air Physical Exam: General- oriented x 3, not in distress, speaks in sentences with no effort Head- atraumatic Eyes- EOMI, anicteric ENT- oropharynx clear Neck- supple, no JVD, no adenopathy Lungs- clear to auscultation bilaterally, no rales/wheezes Heart- regular rhythm; no murmur, normal rate Abdomen- non-distended, hypoactive bowel sounds, soft, mild tenderness on the center Extremities- no pretibial edema, no calf tenderness; peripheral pulses intact Neuro- alert, oriented x 3; no gross focal neuro deficits Skin- warm & dry Laboratory Results: Last 24 Hours Test 10/03/17 20:20 10/04/17 04:30 10/04/17 05:43 White Blood Count 6.79 K/uL 6.42 K/uL Red Blood Count 4.33 M/uL 4.30 M/uL Hemoglobin 13.4 g/dL 13.5 g/dL Hematocrit 41.5 % 41.1 % Mean Corpuscular Volume 95.8 fL 95.6 fL Mean Corpuscular Hemoglobin 30.9 pg 31.4 pg Mean Corpuscular Hemoglobin Concent 32.3 g/dl 32.8 g/dl Platelet Count 199 K/uL 190 K/uL Mean Platelet Volume 8.6 fL 8.9 fL Neutrophils (%) (Auto) 84.9 % 77.8 % Lymphocytes (%) (Auto) 12.1 % 13.9 % Monocytes (%) (Auto) 2.4 % 7.0 % Eosinophils (%) (Auto) 0.4 % 0.8 % Basophils (%) (Auto) 0.1 % 0.2 % Neutrophils # (Auto) 5.76 K/uL 5.00 K/uL Lymphocytes # (Auto) 0.82 K/uL 0.89 K/uL Monocytes # (Auto) 0.16 K/uL 0.45 K/uL Eosinophils # (Auto) 0.03 K/uL 0.05 K/uL Basophils # (Auto) 0.01 K/uL 0.01 K/uL RDW Standard Deviation 51.3 fL 51.6 fL RDW Coefficient of Variation 14.5 % 14.8 % Immature Granulocyte % (Auto) 0.1 % 0.3 % Immature Granulocyte # (Auto) 0.01 K/uL 0.02 K/uL Sodium Level 138 mmol/L 138 mmol/L Potassium Level 4.1 mmol/L 3.8 mmol/L Chloride Level 102 mmol/L 104 mmol/L Carbon Dioxide Level 30 mmol/L 26 mmol/L Anion Gap 6.0 mmol/L 8.0 mmol/L Blood Urea Nitrogen 21 mg/dl 21 mg/dl Creatinine 0.71 mg/dl 0.67 mg/dl Est Creatinine Clear Calc Drug Dose 48.6 ml/min 51.1 ml/min Estimated GFR () 96.6 99.7 Estimated GFR (Non- 83.3 86.0 BUN/Creatinine Ratio 29.3 31.9 Random Glucose 111 mg/dl 97 mg/dl Calcium Level 9.4 mg/dl 9.1 mg/dl Magnesium Level 2.0 mg/dl 1.9 mg/dl Total Bilirubin 0.3 mg/dl Direct Bilirubin < 0.1 mg/dl Aspartate Amino Transf (AST/SGOT) 16 U/L Alanine Aminotransferase (ALT/SGPT) 16 U/L Alkaline Phosphatase 80 U/L Total Protein 7.2 gm/dl Albumin 3.4 gm/dl Lipase 108 U/L Urine Color YELLOW Urine Appearance CLEAR Urine pH 6.5 Urine Specific [place] 1.010 Urine Protein NEG Urine Glucose (UA) NEG Urine Ketones NEG Urine Occult Blood TRACE Urine Nitrite NEG Urine Bilirubin NEG Urine Urobilinogen NEG Urine Leukocyte Esterase NEG Urine RBC 0-4 /hpf Urine WBC 1-5 /hpf Urine Epithelial Cells 20-30 /lpf Urine Bacteria NEG Urine Hyaline Casts 1-5 /lpf Prothrombin Time 10.1 SECONDS Prothromb Time International Ratio 1.0 Phosphorus Level 3.2 mg/dl Assessment & Plan 1. Recurrent bowel obstruction. hx ovarian cancer, s/p JOMAR/BSP 12/2016 and Chemo 2016 -- was admitted to [facility] last September 052016 for SBO, resolved with conservative management --- CT abdomen IMPRESSION: 1. Findings consistent with a nonspecific small bowel obstructive process most likely in the central or upper pelvic region. 2. The degree of small bowel distention is similar as compared to the prior study with a moderate amount of low pelvic ascites and a mild amount of perihepatic ascites. 3. Etiology of the small bowel obstruction given is unknown but appears to be different from the right upper quadrant etiology on the prior study . A well-defined obstructing mass is not appreciated on this study. -- still has abdominal pain, hypoactive bowel sounds evaluated by Gen Surg, Dr. Hill- recommend to transfer to [facility], as patient may need Surgical Intervention discussed with [facility] [place]- Dr. Perera and she kindly accepted the patient will check Lactic Acid Level -- continue NG tube, NPO, IV fluids 2. Hypertension, stable. -- on Verapamil 3. Past tobacco abuse. 4. Malnutrition, low BMI. Current Inpatient Medications: Current Inpatient Medications Medications (Trade) Dose Ordered Sig/Abel Route Start Time Stop Time Status Last Admin Dose Admin Ioversol (Optiray 320) 111 ml UD PRN IV 10/03/17 20:00 10/07/17 19:59 Promethazine HCl 12.5 mg/Sodium Chloride 50.5 ml @ 204 mls/hr Q6H PRN IV 10/03/17 22:45 11/02/17 22:44 10/04/17 05:18 204 MLS/HR Acetaminophen 100 ml @ 400 mls/hr Q8H PRN IV 10/03/17 22:45 11/02/17 22:44 Morphine Sulfate (MoRPHine SULFATE INJ) 2 mg Q3H PRN IV 10/03/17 22:45 10/17/17 22:44 10/03/17 23:56 2 MG Morphine Sulfate (MoRPHine SULFATE INJ) 4 mg Q3H PRN IV 10/03/17 22:45 10/17/17 22:44 Enoxaparin Sodium (Lovenox Inj) 30 mg Q24H SQ 10/04/17 08:00 11/03/17 07:59 Acetaminophen (Tylenol Tab) 650 mg Q4H PRN PO 10/03/17 23:15 11/02/17 23:14 Prochlorperazine Edisylate 5 mg/ Syringe 5 ml @ 5 mls/min Q6H PRN IV 10/03/17 23:15 11/02/17 23:14 Hydromorphone HCl (Dilaudid Inj) 0.25 mg Q3H PRN IV 10/03/17 23:15 10/17/17 23:14 Tramadol HCl (Ultram Tab) not relieved by tylenol @ Q6H PRN PO 10/03/17 23:15 11/02/17 23:14 Ketorolac Tromethamine (Toradol Inj) 15 mg Q6H PRN IV. 10/03/17 23:15 10/08/17 23:14 Gabapentin (Neurontin Cap) 600 mg HS PO 10/04/17 21:00 11/03/17 20:59 Verapamil HCl (Isoptin Tab) 80 mg TID PO 10/04/17 09:00 11/03/17 08:59 10/04/17 07:42 80 MG Docusate Sodium (coLACE CAP) 100 mg DAILY PO 10/04/17 09:00 11/03/17 08:59 Potassium Chloride/Dextrose/ Sod Cl 1,000 ml @ 100 mls/hr Q10H IV 10/04/17 07:00 11/03/17 06:59 10/04/17 07:42 100 MLS/HR
--- NOTE | 2017-10-04 08:47 | Discharge Instructions ---
Discharge Instructions Date of Service Oct 04, 2017. Admission Reason for Admission: SBO Discharge Discharge Diagnosis / Problem: Small Bowel Obstruction, Recurrent Discharge Goals Goal(s): Diagnostic testing, Therapeutic intervention Activity Recommendations Activity Level: Assistance Required Therapies: Physical Therapy, Occupational Therapy . Additional Information Patient informed of condition: Yes Advance Directives: No (Unknown) DNR: No (Patient is a Full Code) Level of Care: Other ([facility]) Communicable Disease: No Prognosis: Other (Guarded) Instructions / Follow-Up Instructions / Follow-Up Please refer to accompanying hospital discharge summary. Current Hospital Diet Patient's current hospital diet: Discharge Diet Recommended Diet: N/A (npo) Procedures Procedures Performed: CT abdomen, Chest Xray Pending Studies Studies pending at discharge: yes List of pending studies: Please refer to accompanying hospital discharge summary. Physician Orders On Transfer Special Precautions: Please refer to accompanying hospital discharge summary. Medical Emergencies . Who to Call and When: Medical Emergencies: If at any time you feel your situation is an emergency, please call 911 immediately. . Non-Emergent Contact Non-Emergency issues call your: Primary Care Provider, Surgeon Call Non-Emergent contact if: you have a fever, your pain is not controlled, your pain is worsening, you have any medication questions . Past History Medical & Surgical History: (1) SBO (small bowel obstruction) (2) Hypertension (3) Migraine headache (4) History of appendectomy . "Provider Documentation" section prepared by Praveen Lobato. . Core Measure Problem Core Measures: None
--- NOTE | 2017-10-04 08:54 | Discharge Summary ---
Discharge Summary Date of Service Oct 04, 2017. Discharge Summary Admission Date: Oct 03, 2017 at 22:32 Discharge Date: Oct 05, 2017 Discharge Disposition: Acute care facility ([facility]) Principal Diagnosis: Recurrent bowel obstruction;History of ovarian cancer, s/p JOMAR/BSP 12/2016 and s/ p Adjuvant Chemo in 2017 Secondary Diagnoses/Problems: Please refer to hospital course below. Procedures: CXR: CLINICAL HISTORY: SBO, distended abd, FA dyspnea COMPARISON STUDY: 09/09/2017 FINDINGS: Mild emphysematous and chronic granulomatous change. No focal infiltrate. Diaphragms smooth but somewhat flattened. IMPRESSION: Chronic and emphysematous change. No acute process. ABD/PELVIS IV CONTRAST ONLY: CT DOSE: 229.27 mGy.cm HISTORY: Bowel obstruction SBO, h/o ovarian cancer TECHNIQUE: Multiaxial CT images of the abdomen and pelvis were performed following the use of intravenous contrast. A dose lowering technique was utilized adhering to the principles of ALARA. COMPARISON STUDY: 09/05/2017 FINDINGS: Lung bases are clear. Trace amount of perihepatic ascites similar compared to the prior study. No significant space-occupying lesions within the liver. Kidneys enhance uniformly. Atherosclerotic change abdominal aorta unchanged from the prior exam. Unchanging prominence of the biliary ductal system. Distended loops of small bowel extending from the left central abdominal region through the soft tissue pelvic region. Moderate amount of ascites within the pelvic cul-de-sac. Etiology is not clear. A well-defined obstructing mass or lesion is not appreciated. The bowel pattern distention is at some variance to the prior study which related to the right upper quadrant. Current evaluation indicates of the low central pelvis although again a true obstructing lesion is not appreciated. No definitive evidence for pneumatosis. No significant colonic distention of the cochlea current study. IMPRESSION: 1. Findings consistent with a nonspecific small bowel obstructive process most likely in the central or upper pelvic region. 2. The degree of small bowel distention is similar as compared to the prior study with a moderate amount of low pelvic ascites and a mild amount of perihepatic ascites. 3. Etiology of the small bowel obstruction given is unknown but appears to be different from the right upper quadrant etiology on the prior study . A well-defined obstructing mass is not appreciated on this study. The above report was generated using voice recognition software. It may contain grammatical, syntax or spelling errors. Electronically signed by: Mc Burks M.D. 10/03/2017 9:20 PM Dictated Date/Time: 10/03/2017 9:14 PM Consultations: Generaly Surgery Dr. Hill Pending Studies/Follow-Up: Please refer to hospital course below. Medication Reconciliation Continued Medications: Docusate Sodium (Colace) 100 Mg Cap 100 MG PO PRN for Constipation, CAP Gabapentin (Neurontin) 300 Mg Cap 600 MG PO HS, CAP with evening meal Verapamil (Calan) 80 Mg Tab 80 MG PO TID, TAB Discontinued Medications: Aspirin (Aspirin Ec) 81 Mg Tab 81 MG PO DAILY Admission Information HPI (per Admitting provider): CHIEF COMPLAINT: Abdominal pain. HISTORY OF PRESENT ILLNESS: History obtained from patient's records. Medical history significant for ovarian cancer, status post surgery, chemotherapy, hypertension, past tobacco abuse , recent confinement last month for bowel obstruction, resolved with conservative management. Today, she had achy abdominal pain, with nausea and vomiting, she had to assembler for puller over machine, no chest pain or shortness of breath , good bowel movement, brought to Emergency Room. Physical Exam (per Admitting): VITAL SIGNS: Blood pressure was noted to be 131/90, pulse 75, RR 20, temperature 37.1 GENERAL: Noted to be hyposthenic, comfortable, no respiratory distress. SKIN: Normal color, warm. HEENT: [place] palpebral conjunctiva. No ptosis. Dry mucosa. NECK: Supple. No tenderness. CHEST: Clear to auscultation. No tenderness. HEART: Regular rate and rhythm. No murmur. ABDOMEN: Soft, nontender. EXTREMITIES: No edema, no tenderness. No gross deformities. NEUROLOGIC: Coherent. No gross focality. Hospital Course 1. Recurrent bowel obstruction. 1. Recurrent bowel obstruction. History of ovarian cancer, s/p JOMAR/BSP 12/2016 and s/p Adjuvant Chemo in 2017 -- was admitted to [facility] last September 05-2016 for SBO, resolved with conservative management -- readmitted on 10/03/17 for abdominal pain, nausea - CT abdomen IMPRESSION: 1. Findings consistent with a nonspecific small bowel obstructive process most likely in the central or upper pelvic region. 2. The degree of small bowel distention is similar as compared to the prior study with a moderate amount of low pelvic ascites and a mild amount of perihepatic ascites. 3. Etiology of the small bowel obstruction given is unknown but appears to be different from the right upper quadrant etiology on the prior study . A well-defined obstructing mass is not appreciated on this study. -- 10/04/17: still has abdominal pain, hypoactive bowel sounds, NG tube inserted, drained around 1.5L evaluated by Gen Surg, Dr. Hill- recommend to transfer to [facility], as patient may need Surgical Intervention discussed with [facility] [place] Surgery- Dr. Perera and she kindly accepted the patient Lactic acid normal -- 10/05/17 abdominal pain and nausea improving NG tube output 900cc so far maintain NG tube, IV fluids, NPO awaiting transfer to [facility] -- continue NG tube, NPO, IV fluids 2. Hypertension -- BP mildly elevated -- on Verapamil PRN Clonidine 3. Past tobacco abuse. 4. Malnutrition, low BMI. Total time spent on discharge = 50 minutes This includes examination of the patient, discharge planning, medication reconciliation, and communication with other providers. Discharge Instructions Discharge Instructions Date of Service Oct 04, 2017. Admission Reason for Admission: SBO Discharge Discharge Diagnosis / Problem: Small Bowel Obstruction, Recurrent Discharge Goals Goal(s): Diagnostic testing, Therapeutic intervention Activity Recommendations Activity Level: Assistance Required Therapies: Physical Therapy, Occupational Therapy . Additional Information Patient informed of condition: Yes Advance Directives: No (Unknown) DNR: No (Patient is a Full Code) Level of Care: Other ([facility]) Communicable Disease: No Prognosis: Other (Guarded) Instructions / Follow-Up Instructions / Follow-Up Please refer to accompanying hospital discharge summary. Current Hospital Diet Patient's current hospital diet: Discharge Diet Recommended Diet: N/A (npo) Procedures Procedures Performed: CT abdomen, Chest Xray Pending Studies Studies pending at discharge: yes List of pending studies: Please refer to accompanying hospital discharge summary. Physician Orders On Transfer Special Precautions: Please refer to accompanying hospital discharge summary. Medical Emergencies . Who to Call and When: Medical Emergencies: If at any time you feel your situation is an emergency, please call 911 immediately. . Non-Emergent Contact Non-Emergency issues call your: Primary Care Provider, Surgeon Call Non-Emergent contact if: you have a fever, your pain is not controlled, your pain is worsening, you have any medication questions . Past History Medical & Surgical History: (1) SBO (small bowel obstruction) (2) Hypertension (3) Migraine headache (4) History of appendectomy . "Provider Documentation" section prepared by Praveen Lobato. . Core Measure Problem Core Measures: None
[2017-10-04 09:05] VITALS: BP 158/89; PULSE 75; TEMP 37; O2SAT 94
--- NOTE | 2017-10-04 09:41 | DIAGNOSTIC IMAGING REPORT ---
ABDOMEN 2 VIEWS HISTORY: Small bowel obstruction. Follow-up. COMPARISON: Chest and abdominal series 09/09/2017. FINDINGS: Nasogastric tube terminates in the stomach. The lung bases are clear. No renal or ureteral calculi. Residual contrast within the bladder from the recent CT examination. Small bowel dilatation has improved. There is gas and stool seen throughout the colon. IMPRESSION: 1. Nasogastric tube terminates in the stomach. 2. Small bowel dilatation has improved. Electronically signed by: Shola Plaza M.D. 10/04/2017 9:40 AM Dictated Date/Time: 10/04/2017 9:38 AM
[2017-10-04] MEDS: ENOXAPARIN 30 MG/0.3 ML SYR SQ SCH (11:16)
[2017-10-04] MEDS: MoRPHine SULFATE 2 MG/ML CARP IV PRN ×2 (11:17→19:36)
[2017-10-04] MEDS ORDERED: GABAPENTIN 300 MG CAP PO SCH (21:00)
[2017-10-04 21:14] VITALS: BP 174/78; PULSE 70; O2SAT 93
[2017-10-04 23:41] VITALS: BP 152/81; PULSE 70; TEMP 36.9; O2SAT 93
[2017-10-05] VITALS (7 sets, daily range): BP systolic 148–174; BP diastolic 78–83; PULSE 71–75; TEMP 37–37.5; O2SAT 93–94
[2017-10-05] MEDS: D5NSS + 20MEQ KCL 1,000 ML IV SCH ×2 (03:08→13:07)
--- NOTE | 2017-10-05 07:16 | Surgery Progress Note ---
Surgery Progress Note Date of Service Oct 05, 2017. Subjective NG placed- significant output initially awaiting bed in [place] Objective Vital Signs: Date Time Temp Pulse Resp B/P (MAP) Pulse Ox O2 Delivery O2 Flow Rate FiO2 10/05/17 07:06 71 169/83 (111) 10/05/17 07:02 37.0 73 18 174/82 (112) 93 Room Air 10/04/17 23:41 36.9 70 18 152/81 (104) 93 Room Air 10/04/17 21:14 70 174/78 (110) 93 Room Air 10/04/17 19:30 Room Air 10/04/17 16:00 Room Air 10/04/17 09:05 37.0 75 16 158/89 (112) 94 Room Air 10/04/17 08:00 Room Air General Appearance: no apparent distress Respiratory/Chest: no respiratory distress Abdomen: + pertinent finding (less distended) Laboratory Results: Results Past 24 Hours Test 10/04/17 09:09 Range/Units Lactic Acid Level 1.1 0.4-2.0 mmol/L Assessment & Plan 10/05/17- stable with NG in place- awaiting bed in [place] cont IV meds/ fluids 10/04/17- adm w/ recurrent sbo- she will likely need NG tube to avoid worsening.- With CT findings , I think she will benefit from lysis of adhesions, could be tumor - less likely. will discuss with med team- probable [place] [facility] [place]/04/17- adm w/ recurrent sbo- she will likely need NG tube to avoid worsening.- With CT findings , I think she will benefit from lysis of adhesions, could be tumor - less likely. will discuss with med team- probable [place] [facility]
[2017-10-05] MEDS: DOCUSATE SODIUM 100 MG CAP PO SCH (08:51)
[2017-10-05] MEDS: VERAPAMIL HCL 40 MG TAB PO SCH ×2 (08:51→13:42)
[2017-10-05] MEDS: ENOXAPARIN 30 MG/0.3 ML SYR SQ SCH (08:51)
[2017-10-05] MEDS ORDERED: CLONIDINE HCL 0.1 MG TAB PO PRN (16:45)
--- NOTE | 2017-10-05 16:47 | Progress Note ---
Medicine Progress Note Date & Time of Visit: Oct 05, 2017 at 16:44. Subjective seen resting in bed, comfortable states she feels better than yesterday no abdominal pain and nausea today NG tube remains in place- 900cc output so far denies other symptoms Objective Last 8 Hrs Date Time Temp Pulse Resp B/P (MAP) Pulse Ox O2 Delivery O2 Flow Rate FiO2 10/05/17 16:14 37.5 75 18 155/78 (103) 94 Room Air 10/05/17 13:40 148/79 (102) 10/05/17 10:29 150/78 (102) Physical Exam: General- oriented x 3, not in distress, speaks in sentences with no effort Eyes- anicteric Neck- supple, no JVD Lungs- clear breath sounds bilaterally, no rales/wheezes Heart- regular rhythm; no murmur, normal rate Abdomen- non-distended, hypoactive bowel sounds, soft, NO tenderness Extremities- no pretibial edema, no calf tenderness; peripheral pulses intact Neuro- alert, oriented x 3; no gross focal neuro deficits Skin- warm & dry Laboratory Results: Last 24 Hours Test 10/05/17 16:33 Assessment & Plan 1. Recurrent bowel obstruction. History of ovarian cancer, s/p JOMAR/BSP 12/2016 and s/p Adjuvant Chemo in 2017 -- was admitted to [facility] last September 05-2016 for SBO, resolved with conservative management -- readmitted on 10/03/17 for abdominal pain, nausea - CT abdomen IMPRESSION: 1. Findings consistent with a nonspecific small bowel obstructive process most likely in the central or upper pelvic region. 2. The degree of small bowel distention is similar as compared to the prior study with a moderate amount of low pelvic ascites and a mild amount of perihepatic ascites. 3. Etiology of the small bowel obstruction given is unknown but appears to be different from the right upper quadrant etiology on the prior study . A well-defined obstructing mass is not appreciated on this study. -- 10/04/17: still has abdominal pain, hypoactive bowel sounds, NG tube inserted, drained around 1.5L evaluated by Gen Surg, Dr. Hill- recommend to transfer to [facility], as patient may need Surgical Intervention discussed with [facility] Surgery- Dr. Perera and she kindly accepted the patient Lactic acid normal -- 10/05/17 abdominal pain and nausea improving NG tube output 900cc so far maintain NG tube, IV fluids, NPO awaiting transfer to [facility] -- continue NG tube, NPO, IV fluids 2. Hypertension -- BP mildly elevated -- on Verapamil PRN Clonidine 3. Past tobacco abuse. 4. Malnutrition, low BMI. Consultants: Generaly Surgery Dr. Hill Procedures: CXR: CLINICAL HISTORY: SBO, distended abd, FA dyspnea COMPARISON STUDY: 09/09/2017 FINDINGS: Mild emphysematous and chronic granulomatous change. No focal infiltrate. Diaphragms smooth but somewhat flattened. IMPRESSION: Chronic and emphysematous change. No acute process. ABD/PELVIS IV CONTRAST ONLY: CT DOSE: 229.27 mGy.cm HISTORY: Bowel obstruction SBO, h/o ovarian cancer TECHNIQUE: Multiaxial CT images of the abdomen and pelvis were performed following the use of intravenous contrast. A dose lowering technique was utilized adhering to the principles of ALARA. COMPARISON STUDY: 09/05/2017 FINDINGS: Lung bases are clear. Trace amount of perihepatic ascites similar compared to the prior study. No significant space-occupying lesions within the liver. Kidneys enhance uniformly. Atherosclerotic change abdominal aorta unchanged from the prior exam. Unchanging prominence of the biliary ductal system. Distended loops of small bowel extending from the left central abdominal region through the soft tissue pelvic region. Moderate amount of ascites within the pelvic cul-de-sac. Etiology is not clear. A well-defined obstructing mass or lesion is not appreciated. The bowel pattern distention is at some variance to the prior study which related to the right upper quadrant. Current evaluation indicates of the low central pelvis although again a true obstructing lesion is not appreciated. No definitive evidence for pneumatosis. No significant colonic distention of the cochlea current study. IMPRESSION: 1. Findings consistent with a nonspecific small bowel obstructive process most likely in the central or upper pelvic region. 2. The degree of small bowel distention is similar as compared to the prior study with a moderate amount of low pelvic ascites and a mild amount of perihepatic ascites. 3. Etiology of the small bowel obstruction given is unknown but appears to be different from the right upper quadrant etiology on the prior study . A well-defined obstructing mass is not appreciated on this study. The above report was generated using voice recognition software. It may contain grammatical, syntax or spelling errors. Electronically signed by: Mc Burks M.D. 10/03/2017 9:20 PM Dictated Date/Time: 10/03/2017 9:14 PM Current Inpatient Medications: Current Inpatient Medications Medications (Trade) Dose Ordered Sig/Abel Route Start Time Stop Time Status Last Admin Dose Admin Ioversol (Optiray 320) 111 ml UD PRN IV 10/03/17 20:00 10/07/17 19:59 Promethazine HCl 12.5 mg/Sodium Chloride 50.5 ml @ 204 mls/hr Q6H PRN IV 10/03/17 22:45 11/02/17 22:44 10/04/17 05:18 204 MLS/HR Acetaminophen 100 ml @ 400 mls/hr Q8H PRN IV 10/03/17 22:45 11/02/17 22:44 Morphine Sulfate (MoRPHine SULFATE INJ) 2 mg Q3H PRN IV 10/03/17 22:45 10/17/17 22:44 10/04/17 19:36 2 MG Morphine Sulfate (MoRPHine SULFATE INJ) 4 mg Q3H PRN IV 10/03/17 22:45 10/17/17 22:44 Enoxaparin Sodium (Lovenox Inj) 30 mg Q24H SQ 10/04/17 08:00 11/03/17 07:59 10/05/17 08:51 30 MG Acetaminophen (Tylenol Tab) 650 mg Q4H PRN PO 10/03/17 23:15 11/02/17 23:14 Prochlorperazine Edisylate 5 mg/ Syringe 5 ml @ 5 mls/min Q6H PRN IV 10/03/17 23:15 11/02/17 23:14 Hydromorphone HCl (Dilaudid Inj) 0.25 mg Q3H PRN IV 10/03/17 23:15 10/17/17 23:14 Tramadol HCl (Ultram Tab) not relieved by tylenol @ Q6H PRN PO 10/03/17 23:15 11/02/17 23:14 Gabapentin (Neurontin Cap) 600 mg HS PO 10/04/17 21:00 11/03/17 20:59 10/04/17 21:15 600 MG Verapamil HCl (Isoptin Tab) 80 mg TID PO 10/04/17 09:00 11/03/17 08:59 10/05/17 13:42 80 MG Docusate Sodium (coLACE CAP) 100 mg DAILY PO 10/04/17 09:00 11/03/17 08:59 10/05/17 08:51 100 MG Potassium Chloride/Dextrose/ Sod Cl 1,000 ml @ 100 mls/hr Q10H IV 10/04/17 07:00 11/03/17 06:59 10/05/17 13:07 100 MLS/HR Clonidine HCl (Catapres Tab) 0.1 mg Q6H PRN PO 10/05/17 16:45 11/04/17 16:44 UNV
[2017-10-05 17:34] LABS: CALCIUM 8.8 mg/dl (8.5-10.1); CREATININE 0.57 mg/dl (0.60-1.20); POTASSIUM 3.6 mmol/L (3.5-5.1)
== END 2017-10-05 18:20 | disposition short-term general hospital (02) | DRG 389 ==
LOC: C.EDB 17:45 → C.MSN 22:32 → ENRESERV 22:38
PROVIDERS: ADMIT Internal Medicine; ATTEND Internal Medicine
DX: K56.609 Unspecified intestinal obstruction, unspecified as to partial versus complete obstruction (principal); E46 Unspecified protein-calorie malnutrition; Z68.1 Body mass index [BMI] 19.9 or less, adult; I10 Essential (primary) hypertension; Z87.891 Personal history of nicotine dependence; Z85.43 Personal history of malignant neoplasm of ovary; Z92.21 Personal history of antineoplastic chemotherapy; Z90.722 Acquired absence of ovaries, bilateral; Z90.710 Acquired absence of both cervix and uterus; Z90.49 Acquired absence of other specified parts of digestive tract; Z79.82 Long term (current) use of aspirin; Z79.899 Other long term (current) drug therapy; Z80.0 Family history of malignant neoplasm of digestive organs; Z80.1 Family history of malignant neoplasm of trachea, bronchus and lung; Z80.3 Family history of malignant neoplasm of breast; Z82.3 Family history of stroke; Z83.3 Family history of diabetes mellitus; Z82.49 Family history of ischemic heart disease and other diseases of the circulatory system